=== PATIENT | female | born 1930 | race African-American/Black ===

== ENCOUNTER → 2017-07-15 | Outpatient (CLI) | payer OTHER ==
[2014-04-07 23:10] VITALS: BP 151/79
[2017-07-15 10:38] LABS: EOSINOPHILS # (AUTO) 0.1 x10^3/uL (0.0-0.2); HEMOGLOBIN 11.6 g/dL (12.0-16.0); LYMPHOCYTES # (AUTO) 0.9 X10^3/uL (1.3-2.9); LYMPHOCYTES % (AUTO) 29.5 % (21.0-51.0); MEAN CORPUSCULAR HEMOGLOBIN 31.8 pg (27.0-34.0); MEAN CORPUSCULAR HGB CONC 33.2 g/dL (33.0-35.0); MEAN CORPUSCULAR VOLUME 95.9 fL (80.0-100.0); MEAN PLATELET VOLUME 10.3 fL (7.4-11.0); MONOCYTES # (AUTO) 0.6 x10^3/uL (0.3-0.8); MONOCYTES % (AUTO) 21.3 % (0.0-13.0); NEUTROPHILS # (AUTO) 1.4 x10^3/uL (2.2-4.8); NEUTROPHILS % (AUTO) 45.2 % (42.0-75.0); PLATELET COUNT 124 X10^3/uL (150.0-450.0); RED BLOOD COUNT 3.65 X10^6/uL (3.5-5.4); RED CELL DISTRIBUTION WIDTH 14.1 % (11.6-16.5)
[2017-07-15 10:59] LABS: ALANINE AMINOTRANSFERASE 25 Units/L (12-78); ALBUMIN 3.5 g/dL (3.4-5.0); ALKALINE PHOSPHATASE 120 Units/L (46-116); ASPARTATE AMINO TRANSFERASE 38 Units/L (15-37); BLOOD UREA NITROGEN 14 mg/dL (7-18); CALCIUM 9.3 mg/dL (8.5-10.1); CARBON DIOXIDE 29.6 mmol/L (21-32); CHLORIDE 107 mmol/L (98-107); CREATININE 0.85 mg/dL (0.55-1.02); SODIUM 141 mmol/L (136-145); T4 (THYROXINE) 6.1 ug/dL (4.7-13.3); TOTAL PROTEIN 7.6 g/dL (6.4-8.2); TSH (3RD GENERATION) 0.866 uIU/mL (0.358-3.74); eGFR BLACK RACES > 60 (>60); eGFR NON BLACK RACES > 60 (>60)
[2017-07-15 11:02] LABS: PLATELET MORPHOLOGY COMMENT NORMAL (NORMAL)
== END ==
LOC: LAB 10:06
PROVIDERS: ATTEND Nurse Practitioner Family
DX: D51.0 Vitamin B12 deficiency anemia due to intrinsic factor deficiency (principal); E04.1 Nontoxic single thyroid nodule; R63.0 Anorexia
CPT/HCPCS: 36415; 80053; 84436; 84443; 85025

== ENCOUNTER 2019-03-06 14:07 | Inpatient (IN) ==
--- NOTE | 2019-03-06 14:44 | RAD ---
HISTORY: Shortness of breath Study: Single-view of the chest Comparison: December 24, 2018 Findings: The patient is rotated. The cardiac silhouette is enlarged. The lungs are well expanded without focal infiltrate. There is questionable minimal blunting of the costophrenic angles suggesting pleural thickening and/or is trace effusions. The aorta is partially calcified and tortuous. IMPRESSION: 1. Cardiomegaly. Reported By:
--- NOTE | 2019-03-06 14:49 | DR.GENAD ---
HPI Time Seen Time Seen by Provider: 03/06/19 14:20 PCP Primary Care Physician: MEÑO WHITE HPI Comment HPI Comment: Patient has had dyspnea but son thinks she is having more since surgical procedure to putting clips for mitral valve before really needed. She was discharged from [facility] on yesterday. . Denies any increased shortness of breath. Complaint/Symptoms Chief Complaint Doctors Comments: Dyspnea Chief Complaint:: PT'S DAUGHTER STATES "SHE HAD HEART SURGERY SATURDAY AND SHE HAD SOME KIND OF CLAMP PUT ON HER HEART AND EVERY SINCE THEN SHE HAS BEEN COMPLAINING OF SOB AND DIFFICULTY CATCHING HER BREATH." Self Treatment fo Chief Complaint: NONE Source History Provided: Family Member Mode of Arrival Mode of Arrival: Wheelchair Timing Onset of Chief Complaint: 03/04/19 PMH PMH Past Medical History: Yes Past Medical History: Arthritis, Coronary Artery Disease, GERD and Hypertension Past Surgical History: Yes Surgical History: Hysterectomy, Tonsillectomy and Other (mitral valve clips) Family History History of Family Medical Conditions: Yes Family Medical History: Diabetes Mellitus, Cancer and Hypertension Social History Type of Tobacco Use: None Does any household member use tobacco: No Do you use any recreational Drugs:: No Lives With: Family Lives Where: Home infectious screening In the last 2 months have you had wt loss of >10#?: NO Have you had fever, night sweats or hemotysis?: No Have you traveled outside the country in the last 6 months?: No Isolation: Standard ROS Review of Systems Constitutional: No Symptoms Reported Eyes: No Symptoms Reported ENTM: No Symptoms Reported Respiratoy: No Symptoms Reported Cardiovascular: No Symptoms Reported Gastrointestinal/Abdominal: No Symptoms Reported Genitourinary: No Symptoms Reported Neurological: No Symptoms Reported Musculoskeletal: No Symptoms Reported Integumentary: No Symptoms Reported Hematologic/Lymphatic: No Symptoms Reported Endocrine: No Symptoms Reported All Other Systems: Reviewed and Negative PE Vital Signs Vitals: Temperature 98.7 F Pulse Rate [Apical] 101 Pulse Rate 100 Respiratory Rate 22 Blood Pressure [Right Arm] 106/84 Blood Pressure 102/67 O2 Sat by Pulse Oximetry 99 General Limitations: No Limitations General Appearance: Alert and In No Apparent Distress Head Head Exam: Normal Inspection, Atraumatic and Normocephalic Eyes Eye exam: Normal Appearance, PERRL and EOMI ENT ENT Exam: Normal Exam, Normal Oropharynx and Normal External Ear Exam External Ear Exam: Normal External Inspection TM/Canal Exam: Bilateral: Normal Nose Exam: Crepitus Mouth Exam: Normal Inspection Neck Neck Exam: Normal Inspection and Full ROM Chest Chest Inspection: Normal Inspection, Symmetric Chest Wall Rise and Tenderness Respiratory Respiratory Exam: Normal Lung Sounds Bilat Respiratory Exam: Bilateral: Clear to Auscultation Cardiovascular Cardiovascular Exam: Regular Rate and Normal Rhythm Abdominal Exam Abdominal Exam: Normal Inspection, Normal Bowel Sounds and Soft Extremities Extremities Exam: Normal Inspection, Full ROM and Normal Capillary Refill; negative Edema and Joint Swelling Back Back Exam: Normal Inspection Neurologic Neurological Exam: Alert, Oriented X3 and CN II-XII Intact Psychiatric Psychiatric Exam: Normal Mood Skin Skin Exam: Warm, Dry, Intact and Normal Color COURSE Reevaluation 3rd: Unchanged Consultation Called: 16:51 Consultation Comments: consulted and agreed to admit for further treatment ROR Labs Reviewed Laboratory Results Reviewed?: Yes Result Diagrams: 03/06/19 14:42 03/06/19 14:42 Laboratory: WBC 4.3 X10^3/uL (3.6-10.0) 03/06/19 14:42 RBC 3.26 X10^6/uL (3.5-5.4) L 03/06/19 14:42 Hgb 10.7 g/dL (12.0-16.0) L 03/06/19 14:42 Hct 32.0 % (36.0-47.0) L 03/06/19 14:42 MCV 98.1 fL (80.0-100.0) 03/06/19 14:42 MCH 32.8 pg (27.0-34.0) 03/06/19 14:42 MCHC 33.4 g/dL (33.0-35.0) 03/06/19 14:42 RDW 14.7 % (11.6-16.5) 03/06/19 14:42 Plt Count 136 X10^3/uL (150.0-450.0) L 03/06/19 14:42 MPV 10.3 fL (7.4-11.0) 03/06/19 14:42 Neut % (Auto) 72.6 % (42.0-75.0) 03/06/19 14:42 Lymph % (Auto) 12.4 % (21.0-51.0) L 03/06/19 14:42 [place] % (Auto) 12.9 % (0.0-13.0) 03/06/19 14:42 Eos % (Auto) 1.7 % (0.9-2.9) 03/06/19 14:42 Baso % (Auto) 0.4 % (0.2-1.0) 03/06/19 14:42 Neut # (Auto) 3.1 x10^3/uL (2.2-4.8) 03/06/19 14:42 Lymph # (Auto) 0.5 X10^3/uL (1.3-2.9) L 03/06/19 14:42 Deuel # (Auto) 0.5 x10^3/uL (0.3-0.8) 03/06/19 14:42 Eos # (Auto) 0.1 x10^3/uL (0.0-0.2) 03/06/19 14:42 Baso # (Auto) 0.0 X10^3/uL (0.0-0.1) 03/06/19 14:42 Absolute Nucleated RBC 0.1 /100WBC 03/06/19 14:42 D-Dimer 1190 ng/mL (0-400) H* 03/06/19 14:42 Sodium 138 mmol/L (136-145) 03/06/19 14:42 Corrected Sodium TNP 03/06/19 14:42 Potassium 2.9 mmol/L (3.5-5.1) L* 03/06/19 14:42 Chloride 104 mmol/L (98-107) 03/06/19 14:42 Carbon Dioxide 22.8 mmol/L (21-32) 03/06/19 14:42 BUN 13 mg/dL (7-18) 03/06/19 14:42 Creatinine 1.02 mg/dL (0.55-1.02) 03/06/19 14:42 Est GFR (MDRD) Af Amer > 60 (>60) 03/06/19 14:42 Est GFR (MDRD) Non-Af 54 (>60) L 03/06/19 14:42 Glucose 107 mg/dL (65-99) H 03/06/19 14:42 Calcium 8.7 mg/dL (8.5-10.1) 03/06/19 14:42 Corrected Calcium 9.7 mg/dL (8.5-10.1) 03/06/19 14:42 Total Bilirubin 0.80 mg/dL (0.2-1.0) 03/06/19 14:42 AST 49 Units/L (15-37) H 03/06/19 14:42 ALT 34 Units/L (12-78) 03/06/19 14:42 Alkaline Phosphatase 105 Units/L (46-116) 03/06/19 14:42 Creatine Kinase 260 Units/L (26-192) H 03/06/19 14:42 Total Protein 6.0 g/dL (6.4-8.2) L 03/06/19 14:42 Albumin 2.8 g/dL (3.4-5.0) L 03/06/19 14:42 Globulin 3.2 g/dL (2.5-4.5) 03/06/19 14:42 Albumin/Globulin Ratio 0.9 Ratio (1.1-2.1) L 03/06/19 14:42 Other Results Comments: Chest; The patient is rotated. The cardiac silhoureet is enlarged. The lungs are well expanded without focal infiltrate. There is questionable minimal blunting. of the costophrenic angles suggesting pleural thickening and/or is truce effusions. The aorta is partially calcified and tortous. Impression: Cardimoegaly. CTA: Possible filling defects can be seen within the right lower lobe pulmonary arteries. Severe cardiomegaly. Severe coronary calcification and valvular calcification. Redemonstration of reflux of contrast into the IVC and hepatic veins. No pericardial effusion. No suspicious mediastinal or axillary lymph nodes. There is a small right pleural effusion with adjacent atelectasis and ground glass. Airways are patent. No suspicious pulmonary nodules or masses.Impression: Possible small subsegmental right lower lobe pulmonary embolism. No right pleural effusion and adjacent atelectasis. Superimposed infection cannot be excluded. XRAY XRAY Interpreted by: Radiologist ADDITIONAL NOTES Additional Notes Additional Notes: 1605: D Dimer results, elevated 1500, will do CTA
[2019-03-06 14:55] LABS: BASOPHILS % (AUTO) 0.4 % (0.2-1.0); EOSINOPHILS # (AUTO) 0.1 x10^3/uL (0.0-0.2); EOSINOPHILS % (AUTO) 1.7 % (0.9-2.9); HEMOGLOBIN 10.7 g/dL (12.0-16.0); LYMPHOCYTES # (AUTO) 0.5 X10^3/uL (1.3-2.9); LYMPHOCYTES % (AUTO) 12.4 % (21.0-51.0); MEAN CORPUSCULAR HEMOGLOBIN 32.8 pg (27.0-34.0); MEAN CORPUSCULAR HGB CONC 33.4 g/dL (33.0-35.0); MEAN CORPUSCULAR VOLUME 98.1 fL (80.0-100.0); MEAN PLATELET VOLUME 10.3 fL (7.4-11.0); MONOCYTES # (AUTO) 0.5 x10^3/uL (0.3-0.8); MONOCYTES % (AUTO) 12.9 % (0.0-13.0); NEUTROPHILS # (AUTO) 3.1 x10^3/uL (2.2-4.8); NEUTROPHILS % (AUTO) 72.6 % (42.0-75.0); PLATELET COUNT 136 X10^3/uL (150.0-450.0); RED BLOOD COUNT 3.26 X10^6/uL (3.5-5.4); RED CELL DISTRIBUTION WIDTH 14.7 % (11.6-16.5); WHITE BLOOD COUNT 4.3 X10^3/uL (3.6-10.0)
[2019-03-06 15:46] LABS: ALANINE AMINOTRANSFERASE 34 Units/L (12-78); ALBUMIN 2.8 g/dL (3.4-5.0); ALKALINE PHOSPHATASE 105 Units/L (46-116); ASPARTATE AMINO TRANSFERASE 49 Units/L (15-37); BLOOD UREA NITROGEN 13 mg/dL (7-18); CALCIUM 8.7 mg/dL (8.5-10.1); CARBON DIOXIDE 22.8 mmol/L (21-32); CHLORIDE 104 mmol/L (98-107); COR CA(FOR HYPOALB) 9.7 mg/dL (8.5-10.1); CREATINE KINASE 260 Units/L (26-192); CREATININE 1.02 mg/dL (0.55-1.02); SODIUM 138 mmol/L (136-145); eGFR NON BLACK RACES 54 (>60)
[2019-03-06] MEDS ORDERED: K-LYTE EFFERVESCENT ONE (16:04)
--- NOTE | 2019-03-06 16:51 | CT ---
CT CHEST WITH IV CONTRAST - PE PROTOCOL HISTORY: Shortness of breath since recent heart surgery. Elevated D-dimer. Comparison: 12/24/2018 Technique: Non gated axial images of the chest were obtained with intravenous contrast according to pulmonary embolism protocol. MIPS were reconstructed. Dose reduction techniques including Automated Exposure Control (AEC) and adjustment of mA and kV were utlized. Findings: Possible filling defects can be seen within the right lower lobe pulmonary arteries. For example series 4, image 57 Severe cardiomegaly. Severe coronary calcification and valvular calcification. Redemonstration of reflux of contrast into the IVC and hepatic veins. No pericardial effusion. No suspicious mediastinal or axillary lymph nodes. There is a small right pleural effusion with adjacent atelectasis and ground-glass. Airways are patent. No suspicious pulmonary nodules or masses. Limited images of the upper abdomen are unremarkable. No aggressive osseous lesions. IMPRESSION: 1. Possible small subsegmental right lower lobe pulmonary embolism. 2. New right pleural effusion and adjacent atelectasis. Superimposed infection cannot be excluded. 3. Stable evidence of cardiomegaly and severe right heart dysfunction. Reported By:
[2019-03-06 17:18] LABS: CKMB % 1.1 % (<4); CREATINE KINASE MB 2.9 ng/mL (0-4.0); TROPONIN I 0.04 ng/mL (0-1.5)
[2019-03-06] MEDS ORDERED: ~ZOSYN/LEVAQUIN (Pneumonia) XX ONE (17:24)
[2019-03-06] MEDS ORDERED: NITROSTAT SL PRN (17:39)
[2019-03-06] MEDS ORDERED: SALINE 3% 15 ML NEB TX NEB ONE (18:00)
[2019-03-06] MEDS ORDERED: DUONEB 0.5 MG/3 MG ONE (18:14)
[2019-03-06] MEDS ORDERED: SALINE 3% 15 ML NEB TX ONE (18:14)
[2019-03-06] MEDS: DUONEB 0.5 MG/3 MG NEB SCH ×2 (18:17→21:23)
[2019-03-06] MEDS ORDERED: NS 1/2 1000 ML IV 1,000 ML ONE (18:38)
[2019-03-06] MEDS ORDERED: LEVAQUIN PREMIX IV 750 MG 750 MG/150 ML BAG IV ONE ×2 (18:38→18:39)
[2019-03-06] MEDS: NS 1/2 1000 ML IV 1,000 ML IV SCH (18:39)
[2019-03-06] MEDS ORDERED: LOVENOX INJ 30 MG SYR SC SCH (21:00)
[2019-03-06] MEDS: LOPRESSOR TAB 25 MG PO SCH (21:35)
[2019-03-06] MEDS: COREG TAB 3.125 MG PO SCH (21:35)
[2019-03-06] MEDS: ROBITUSSIN DM PO SCH (21:36)
[2019-03-06] MEDS: BRINZOLAMIDE OP SCH (21:36)
[2019-03-06] MEDS: XALATAN OP SCH (21:36)
[2019-03-07] MEDS: XOPENEX 1.25 MG/3 ML NEBULE NEB SCH ×4 (00:46→17:23)
--- NOTE | 2019-03-07 05:58 | RAD ---
History: Shortness of breath Exam: Portable chest Comparison: 11/05/2006 Technique: Portable AP chest Findings: The heart is mildly enlarged but unchanged. The pulmonary vessels are slightly ill-defined centrally . There are some hazy bibasilar opacities and small bibasilar pleural effusions. IMPRESSION: Mild cardiomegaly and minimal pulmonary edema which is more prominent. Hazy bibasilar opacities and associated small bibasilar pleural effusions. Reported By:
[2019-03-07] MEDS: BRINZOLAMIDE OP SCH ×3 (06:23→20:59)
[2019-03-07 06:35] LABS: BASOPHILS % (AUTO) 0.5 % (0.2-1.0); EOSINOPHILS # (AUTO) 0.1 x10^3/uL (0.0-0.2); EOSINOPHILS % (AUTO) 3.4 % (0.9-2.9); HEMOGLOBIN 9.9 g/dL (12.0-16.0); LYMPHOCYTES # (AUTO) 0.6 X10^3/uL (1.3-2.9); LYMPHOCYTES % (AUTO) 18.7 % (21.0-51.0); MEAN CORPUSCULAR HEMOGLOBIN 33.3 pg (27.0-34.0); MEAN CORPUSCULAR HGB CONC 34.2 g/dL (33.0-35.0); MEAN CORPUSCULAR VOLUME 97.2 fL (80.0-100.0); MEAN PLATELET VOLUME 9.8 fL (7.4-11.0); MONOCYTES # (AUTO) 0.5 x10^3/uL (0.3-0.8); MONOCYTES % (AUTO) 16.2 % (0.0-13.0); NEUTROPHILS % (AUTO) 61.2 % (42.0-75.0); PLATELET COUNT 108 X10^3/uL (150.0-450.0); RED BLOOD COUNT 2.98 X10^6/uL (3.5-5.4); RED CELL DISTRIBUTION WIDTH 14.8 % (11.6-16.5); WHITE BLOOD COUNT 3.3 X10^3/uL (3.6-10.0)
[2019-03-07 06:50] LABS: ALANINE AMINOTRANSFERASE 31 Units/L (12-78); ALBUMIN 2.4 g/dL (3.4-5.0); ALKALINE PHOSPHATASE 94 Units/L (46-116); ASPARTATE AMINO TRANSFERASE 42 Units/L (15-37); BLOOD UREA NITROGEN 10 mg/dL (7-18); CALCIUM 8.3 mg/dL (8.5-10.1); CARBON DIOXIDE 23.9 mmol/L (21-32); CHLORIDE 107 mmol/L (98-107); COR CA(FOR HYPOALB) 9.6 mg/dL (8.5-10.1); CREATININE 0.79 mg/dL (0.55-1.02); SODIUM 140 mmol/L (136-145); TOTAL PROTEIN 5.3 g/dL (6.4-8.2); eGFR NON BLACK RACES > 60 (>60)
[2019-03-07] MEDS: PLAVIX PO SCH (08:32)
[2019-03-07] MEDS: MICRO K EXTEN CAP 10 MEQ PO SCH (08:32)
[2019-03-07] MEDS: PROTONIX TAB 40 MG PO SCH (08:32)
[2019-03-07] MEDS: FOLIC ACID TAB 1 MG PO SCH (08:33)
[2019-03-07] MEDS: COREG TAB 3.125 MG PO SCH ×2 (08:33→20:58)
[2019-03-07] MEDS: LOPRESSOR TAB 25 MG PO SCH ×2 (08:33→20:58)
[2019-03-07] MEDS: LEVAQUIN PREMIX IV 750 MG 750 MG/150 ML BAG IV SCH (08:34)
[2019-03-07] MEDS: VSL#3 PO SCH (08:34)
[2019-03-07] MEDS: ROBITUSSIN DM PO SCH ×4 (08:34→20:58)
[2019-03-07] MEDS ORDERED: NS 1/2 1000 ML IV 1,000 ML ONE ×2 (08:36→20:17)
[2019-03-07] MEDS: NS 1/2 1000 ML IV 1,000 ML IV SCH ×2 (08:36→20:59)
[2019-03-07] MEDS: LOVENOX INJ 30 MG SYR SC SCH ×2 (09:54→20:59)
[2019-03-07] MEDS ORDERED: ZOFRAN INJ 4 MG VIAL ONE (10:27)
[2019-03-07] MEDS: ZOFRAN INJ 4 MG VIAL IVP PRN (10:51)
[2019-03-07] MEDS ORDERED: K-LYTE EFFERVESCENT PO ONE (16:00)
[2019-03-07] MEDS: XALATAN OP SCH (20:59)
[2019-03-08] MEDS: XOPENEX 1.25 MG/3 ML NEBULE NEB SCH ×4 (00:14→17:10)
[2019-03-08] MEDS: BRINZOLAMIDE OP SCH (05:26)
[2019-03-08 06:05] LABS: BASOPHILS % (AUTO) 0.4 % (0.2-1.0); EOSINOPHILS # (AUTO) 0.1 x10^3/uL (0.0-0.2); EOSINOPHILS % (AUTO) 3.2 % (0.9-2.9); HEMATOCRIT 30.7 % (36.0-47.0); HEMOGLOBIN 10.3 g/dL (12.0-16.0); LYMPHOCYTES # (AUTO) 0.6 X10^3/uL (1.3-2.9); MEAN CORPUSCULAR HGB CONC 33.4 g/dL (33.0-35.0); MEAN CORPUSCULAR VOLUME 98.9 fL (80.0-100.0); MEAN PLATELET VOLUME 10.1 fL (7.4-11.0); MONOCYTES # (AUTO) 0.6 x10^3/uL (0.3-0.8); MONOCYTES % (AUTO) 18.2 % (0.0-13.0); NEUTROPHILS # (AUTO) 2.1 x10^3/uL (2.2-4.8); NEUTROPHILS % (AUTO) 60.2 % (42.0-75.0); PLATELET COUNT 131 X10^3/uL (150.0-450.0); RED BLOOD COUNT 3.11 X10^6/uL (3.5-5.4); RED CELL DISTRIBUTION WIDTH 15.1 % (11.6-16.5); WHITE BLOOD COUNT 3.4 X10^3/uL (3.6-10.0)
--- NOTE | 2019-03-08 06:07 | RAD ---
HISTORY: Cough Study: Single view chest Comparison: 03/07/2019 Findings: There are small bilateral pleural effusions with increased interstitial markings likely due to interstitial edema. Stable cardiomegaly. No pneumothorax. IMPRESSION: 1. Bilateral pleural effusions with probable interstitial edema. Reported By:
[2019-03-08 06:26] LABS: ALANINE AMINOTRANSFERASE 29 Units/L (12-78); ALBUMIN 2.4 g/dL (3.4-5.0); ALKALINE PHOSPHATASE 90 Units/L (46-116); ASPARTATE AMINO TRANSFERASE 37 Units/L (15-37); BLOOD UREA NITROGEN 8 mg/dL (7-18); CALCIUM 8.5 mg/dL (8.5-10.1); CARBON DIOXIDE 23.7 mmol/L (21-32); CHLORIDE 106 mmol/L (98-107); COR CA(FOR HYPOALB) 9.8 mg/dL (8.5-10.1); CREATININE 0.85 mg/dL (0.55-1.02); SODIUM 139 mmol/L (136-145); TOTAL PROTEIN 5.5 g/dL (6.4-8.2); eGFR NON BLACK RACES > 60 (>60)
[2019-03-08] MEDS: LEVAQUIN PREMIX IV 750 MG 750 MG/150 ML BAG IV SCH (08:21)
[2019-03-08] MEDS: FOLIC ACID TAB 1 MG PO SCH (08:22)
[2019-03-08] MEDS: COREG TAB 3.125 MG PO SCH ×2 (08:22→21:29)
[2019-03-08] MEDS: LOVENOX INJ 30 MG SYR SC SCH ×2 (08:22→21:30)
[2019-03-08] MEDS: LOPRESSOR TAB 25 MG PO SCH ×2 (08:22→21:29)
[2019-03-08] MEDS: PROTONIX TAB 40 MG PO SCH (08:23)
[2019-03-08] MEDS: PLAVIX PO SCH (08:23)
[2019-03-08] MEDS: MICRO K EXTEN CAP 10 MEQ PO SCH (08:23)
[2019-03-08] MEDS: ROBITUSSIN DM PO SCH ×4 (08:23→21:30)
[2019-03-08] MEDS: VSL#3 PO SCH (08:27)
[2019-03-08] MEDS ORDERED: K-DUR TAB 20 MEQ PO PRN (10:04)
[2019-03-08] MEDS ORDERED: POTASSIUM CHLORIDE LIQ 20 MEQ UDC PO PRN (10:04)
[2019-03-08] MEDS ORDERED: K-RIDER 10 MEQ/NS 100 ML 10 MEQ/100 ML BAG IV PRN (10:04)
[2019-03-08] MEDS ORDERED: MICRO K EXTEN CAP 10 MEQ PO PRN (10:04)
[2019-03-08] MEDS ORDERED: POTASSIUM CHL 40 MEQ/NS 0.45% 500 ML IV PRN (10:04)
[2019-03-08] MEDS ORDERED: POTASSIUM CHL 60 MEQ/NS 0.45% 500 ML IV PRN (10:04)
[2019-03-08] MEDS ORDERED: KLOR-CON PO PRN (10:04)
[2019-03-08 10:52] LABS: CKMB % 1.2 % (<4); CREATINE KINASE MB 1.5 ng/mL (0-4.0); TROPONIN I 0.04 ng/mL (0-1.5)
[2019-03-08] MEDS ORDERED: NS 1/2 1000 ML IV 1,000 ML ONE (13:16)
[2019-03-08] MEDS: NS 1/2 1000 ML IV 1,000 ML IV SCH (13:29)
[2019-03-08] MEDS: MAGNESIUM SULFATE 1 GRAM/100 mL PREMIX 1 GM/100 ML BAG IV PRN ×2 (13:30→15:06)
[2019-03-08] MEDS: XALATAN OP SCH (21:30)
--- NOTE | 2019-03-08 22:03 | DR.H&P ---
H&P - History & Physical for Day of: H&P Date: 03/06/19 - Chief Complaint Chief Complaint: SHORTNESS OF BREATH - History of Present Illness History of Present Illness: IS A 88 YEAR OLD PATIENT OF [facility] WHO PRESENTED TO THE ER WITH COMPLAINTS OF SHORTNESS OF BREATH. SHE WAS RELEASED FROM [facility] YESTERDAY FOR PLACEMENT MITRAL VALVE CLIPS. ON ARRIVAL, VITALS WERE 98.7-100-20-99%-102/67. LABS WERE OBTAINED. ABNORMAL LAB VALUES INCLUDE THE FOLLOWING: RBC 3.26, HGB 10.7, HCT 32.0, PLT COUNT 136, D-DIMER 1190, POTASSIUM 2.9, GLUCOSE 107, AST 49, CREATINE KINASE 260, TOTAL PROTEIN 6.0, ALBUMIN 2.8. SPUTUM AND BLOOD CULTURES OBTAINED. CHEST XRAY REVEALED CARDIOMEGALY. EKG REVEALED: ATRIAL FIBRILLATION WITH HR 85. CHEST CTA REVEALED: Possible small subsegmental right lower lobe pulmonary embolism. New right pleural effusion and adjacent atelectasis. Superimposed infection cannot be excluded. Stable evidence of cardiomegaly and severe right heart dysfunction. SHE WAS ADMITTED FOR FURTHER EVALUATION AND TREATMENT OF PULMONARY EMBOLISM AND RLL PNEUMONIA. SHE WAS STARTED ON LOVENOX 30MG SC BID, IV LEVAQUIN, RESPIRATORY TREATMENTS, SUPPLEMENTAL OXYGEN, AND HOME MEDS WERE RESUMED. OTHERWISE, WE WILL FOLLOW UP WITH AM LABS AND CHEST XRAY AND CONTINUE TO MONITOR. - Past Medical History Past Medical History: Coronary Artery Disease, Hypertension, GERD, Arthritis - Past Surgical History Surgical History: Tonsillectomy, Other - Family History Family Medical History: Cancer - Social History Does patient currently use any type of tobacco product: No Have you used tobacco products in the last 12 months: No Type of Tobacco Use: None Does any household member use tobacco: No Alcohol Use: None Drug Use: None - Medications Home Medications: codeine Allergy (Verified 12/24/18 14:42) Penicillins Allergy (Verified 12/24/18 14:42) CONTINUE taking the following medications clopidogrel 75 mg PO DAILY 03/06/19 [History] furosemide 20 mg PO .THREETIMESAWEEK 03/06/19 [History] hydrocodone-acetaminophen 1 tab PO Q4-6H PRN 03/06/19 [History] metoprolol tartrate 12.5 mg PO BID 03/06/19 [History] montelukast 10 mg PO HS 03/06/19 [History] - Review of Systems Constitutional: Weakness Eyes: No Symptoms Reported ENT: No Symptoms Reported Respiratory: See HPI, Cough, Shortness of Breath Cardiovascular: No Symptoms Reported Gastrointestinal: No Symptoms Reported Genitourinary: No Symptoms Reported Musculoskeletal: No Symptoms Reported Skin: No Symptoms Reported Neurological: Weakness - Physical Exam Vital Signs: Temperature 98.5 F Pulse Rate [Left Brachial] 82 Pulse Rate [Apical] 103 Pulse Rate 74 Respiratory Rate 22 Blood Pressure [Left Arm] 132/78 Blood Pressure [Right Arm] 95/70 Blood Pressure 102/67 O2 Sat by Pulse Oximetry 97 Oriented: Normal Eyes: Normal Ear: Normal Nose: Normal Throat: Normal Respiratory: Diminished Throughout Cardiovascular: Normal : Normal Auscultation: Bowel Sounds: Normal Palpation: Normal Tenderness: Normal Skin: Normal Musculoskeletal: Normal Psychiatric: Normal Mood Description: Calm Affect: Normal Speech Pattern: Clear - Assessment/Plan (1) Pulmonary embolism on right Status: Suspected Plan: LOVENOX 30MG SC BID, CONTINUE TO MONITOR (2) RLL pneumonia Qualifiers: Pneumonia type: due to unspecified organism Qualified Code(s): J18.1 - Lobar pneumonia, unspecified organism Status: Acute Plan: IV LEVAQUIN, RESPIRATORY TX, SUPPLEMENTAL OXYGEN, CONTINUE TO MONITOR - Allergies Allergies/Adverse Reactions: Allergies Allergy/AdvReac Type Severity Reaction Status Date / Time codeine Allergy Verified 12/24/18 14:42 Penicillins Allergy Verified 12/24/18 14:42
[2019-03-09] MEDS: XOPENEX 1.25 MG/3 ML NEBULE NEB SCH ×4 (00:58→17:12)
[2019-03-09] MEDS ORDERED: NS 1/2 1000 ML IV 1,000 ML ONE ×2 (05:54→19:16)
[2019-03-09] MEDS: NS 1/2 1000 ML IV 1,000 ML IV SCH ×3 (06:00→21:38)
[2019-03-09 06:23] LABS: BASOPHILS % (AUTO) 0.8 % (0.2-1.0); EOSINOPHILS # (AUTO) 0.1 x10^3/uL (0.0-0.2); EOSINOPHILS % (AUTO) 3.8 % (0.9-2.9); HEMATOCRIT 30.8 % (36.0-47.0); HEMOGLOBIN 10.4 g/dL (12.0-16.0); LYMPHOCYTES # (AUTO) 0.6 X10^3/uL (1.3-2.9); LYMPHOCYTES % (AUTO) 20.8 % (21.0-51.0); MEAN CORPUSCULAR HEMOGLOBIN 33.2 pg (27.0-34.0); MEAN CORPUSCULAR HGB CONC 33.9 g/dL (33.0-35.0); MEAN CORPUSCULAR VOLUME 97.9 fL (80.0-100.0); MEAN PLATELET VOLUME 9.5 fL (7.4-11.0); MONOCYTES # (AUTO) 0.5 x10^3/uL (0.3-0.8); MONOCYTES % (AUTO) 17.7 % (0.0-13.0); NEUTROPHILS # (AUTO) 1.7 x10^3/uL (2.2-4.8); NEUTROPHILS % (AUTO) 56.9 % (42.0-75.0); PLATELET COUNT 142 X10^3/uL (150.0-450.0); RED BLOOD COUNT 3.15 X10^6/uL (3.5-5.4); RED CELL DISTRIBUTION WIDTH 15.1 % (11.6-16.5)
[2019-03-09 06:56] LABS: ALANINE AMINOTRANSFERASE 27 Units/L (12-78); ALBUMIN 2.3 g/dL (3.4-5.0); ALKALINE PHOSPHATASE 90 Units/L (46-116); ASPARTATE AMINO TRANSFERASE 33 Units/L (15-37); BLOOD UREA NITROGEN 5 mg/dL (7-18); CALCIUM 8.4 mg/dL (8.5-10.1); CARBON DIOXIDE 23.3 mmol/L (21-32); CHLORIDE 107 mmol/L (98-107); COR CA(FOR HYPOALB) 9.8 mg/dL (8.5-10.1); CREATININE 0.87 mg/dL (0.55-1.02); MAGNESIUM 2.3 mg/dL (1.7-2.9); SODIUM 138 mmol/L (136-145); TOTAL PROTEIN 5.5 g/dL (6.4-8.2); eGFR NON BLACK RACES > 60 (>60)
--- NOTE | 2019-03-09 07:18 | RAD ---
HISTORY: Shortness of breath Study: Chest AP portable Comparison: 03/08/2018, 03/07/2018 Findings: The heart remains enlarged. No definite congestive heart failure is noted. No definite acute alveolar infiltrates are identified. Bilateral pleural effusions are unchanged. The bony thorax is unremarkable. IMPRESSION: Continued cardiomegaly but without congestive heart failure on today's examination No change bilateral pleural effusions Reported By:
[2019-03-09] MEDS: LEVAQUIN PREMIX IV 750 MG 750 MG/150 ML BAG IV SCH (08:26)
[2019-03-09] MEDS: FOLIC ACID TAB 1 MG PO SCH (08:26)
[2019-03-09] MEDS: MICRO K EXTEN CAP 10 MEQ PO SCH (08:26)
[2019-03-09] MEDS: COREG TAB 3.125 MG PO SCH ×2 (08:26→21:20)
[2019-03-09] MEDS: LOPRESSOR TAB 25 MG PO SCH ×2 (08:26→21:19)
[2019-03-09] MEDS: PLAVIX PO SCH (08:27)
[2019-03-09] MEDS: VSL#3 PO SCH (08:27)
[2019-03-09] MEDS: LOVENOX INJ 30 MG SYR SC SCH ×2 (08:27→21:20)
[2019-03-09] MEDS: PROTONIX TAB 40 MG PO SCH (08:27)
[2019-03-09] MEDS: ROBITUSSIN DM PO SCH ×4 (08:27→21:19)
--- NOTE | 2019-03-09 11:34 | PCM.PROG ---
Progress Note - Progress Note for Day of Date of Exam: 03/07/19 - Subjective Subjective: WAS ADMITTED FOR PNEUMONIA AND SUSPECTED PULMONARY EMBOLI TO THE RIGHT LOWER LOBE. TODAY, SHE IS ALERT AND ORIENTED, LYING IN BED ON MORNING ROUNDS. SHE CONTINUES WITH COMPLAINTS OF SHORTNESS OF BREATH. ON EXAMINATION, HEART IS REGULAR IN RATE AND RHYTHM. BILATERAL LUNGS ARE NOTED WITH DIMINISHED LUNG SOUNDS THROUGHOUT. ABDOMEN IS ROUND, SOFT, AND NON-TENDER WITH NORMAL BOWEL SOUNDS NOTED IN ALL QUADRNANTS. HER VITLAS THIS MORNING WERE 98.2-88-2-100%NC-103/65. LABS WERE OBTAINED. ABNORMAL LAB VALUES INCLUDE THE FOLLOWING: WBC 3.3, RBC 2.98, HGB 9.9, HCT 29.0, PLT COUNT 108, CALCIUM 8.3, AST 42, TOTAL PROTEIN 5.3, ALBUMIN 2.4. TODAYS CHEST XRAY REVEALED: Mild cardiomegaly and minimal pulmonary edema which is more prominent. Hazy bibasilar opacities and associated small bibasilar pleural effusions. SHE IS CURRENTLY RECEIVING IV LEVAQUIN, RESPIRATORY TX, SUPPLEMENTAL OXYGEN, AND LOVENOX 30MG SC BID. WE WILL CONTINUE WITH CURRENT PLAN OF CARE TODAY. OTHERWISE, WE WILL FOLLOW UP WITH AM LABS AND CONTINUE TO MONITOR. - Past Medical Family Social History Past Med/Fam/Surg Hx: No changes since H&P Allergies: Allergies codeine Allergy (Verified 12/24/18 14:42) Penicillins Allergy (Verified 12/24/18 14:42) - Review of Systems ROS: No change since H&P - Vital Signs and I&O's Vital Signs: Temperature 98.9 F Pulse Rate [Left Brachial] 88 Pulse Rate [Apical] 103 Pulse Rate 74 Respiratory Rate 18 Blood Pressure [Left Arm] 109/74 Blood Pressure [Right Arm] 95/70 Blood Pressure 102/67 O2 Sat by Pulse Oximetry 100 Intake and Output: Intake & Output 03/06/19 03/07/19 03/08/19 03/09/19 11:59 11:59 11:59 11:59 Intake Total 340 / 340 1400 / 1400 4747 / 4747 Balance 340 / 340 1400 / 1400 4747 / 4747 - Physical Exam Oriented: Normal Eyes: Normal Ear: Normal Nose: Normal Throat: Normal Respiratory: Generalized, Diminished Cardiovascular: Normal : Normal Auscultation: Bowel Sounds: Normal Palpation: Normal Tenderness: Normal Skin: Normal Musculoskeletal: Normal Psychiatric: Normal Mood Description: Calm Affect: Normal Speech Pattern: Clear - Laboratory and Diagnostics Result Diagrams: 03/09/19 05:38 03/09/19 05:38 Labs: 03/06/19 18:49 Sputum - Expectorated Sputum Sputum Culture - Final 03/06/19 18:49 Sputum - Expectorated Sputum - Final 03/06/19 17:42 Blood Blood Culture - Preliminary 03/06/19 17:44 Blood Blood Culture - Preliminary Laboratory WBC 3.0 X10^3/uL (3.6-10.0) L 03/09/19 05:38 RBC 3.15 X10^6/uL (3.5-5.4) L 03/09/19 05:38 Hgb 10.4 g/dL (12.0-16.0) L 03/09/19 05:38 Hct 30.8 % (36.0-47.0) L 03/09/19 05:38 MCV 97.9 fL (80.0-100.0) 03/09/19 05:38 MCH 33.2 pg (27.0-34.0) 03/09/19 05:38 MCHC 33.9 g/dL (33.0-35.0) 03/09/19 05:38 RDW 15.1 % (11.6-16.5) 03/09/19 05:38 Plt Count 142 X10^3/uL (150.0-450.0) L 03/09/19 05:38 MPV 9.5 fL (7.4-11.0) 03/09/19 05:38 Neut % (Auto) 56.9 % (42.0-75.0) 03/09/19 05:38 Lymph % (Auto) 20.8 % (21.0-51.0) L 03/09/19 05:38 Maries % (Auto) 17.7 % (0.0-13.0) H 03/09/19 05:38 Eos % (Auto) 3.8 % (0.9-2.9) H 03/09/19 05:38 Baso % (Auto) 0.8 % (0.2-1.0) 03/09/19 05:38 Neut # (Auto) 1.7 x10^3/uL (2.2-4.8) L 03/09/19 05:38 Lymph # (Auto) 0.6 X10^3/uL (1.3-2.9) L 03/09/19 05:38 Maries # (Auto) 0.5 x10^3/uL (0.3-0.8) 03/09/19 05:38 Eos # (Auto) 0.1 x10^3/uL (0.0-0.2) 03/09/19 05:38 Baso # (Auto) 0.0 X10^3/uL (0.0-0.1) 03/09/19 05:38 Absolute Nucleated RBC 0.1 /100WBC 03/09/19 05:38 D-Dimer 1190 ng/mL (0-400) H* 03/06/19 14:42 Sodium 138 mmol/L (136-145) 03/09/19 05:38 Corrected Sodium TNP 03/09/19 05:38 Potassium 4.0 mmol/L (3.5-5.1) 03/09/19 05:38 Chloride 107 mmol/L (98-107) 03/09/19 05:38 Carbon Dioxide 23.3 mmol/L (21-32) 03/09/19 05:38 BUN 5 mg/dL (7-18) L 03/09/19 05:38 Creatinine 0.87 mg/dL (0.55-1.02) 03/09/19 05:38 Est GFR (MDRD) Af Amer > 60 (>60) 03/09/19 05:38 Est GFR (MDRD) Non-Af > 60 (>60) 03/09/19 05:38 Glucose 83 mg/dL (65-99) 03/09/19 05:38 POC Glucose (mg/dL) 88 mg/dL (65-99) 03/09/19 07:07 Calcium 8.4 mg/dL (8.5-10.1) L 03/09/19 05:38 Corrected Calcium 9.8 mg/dL (8.5-10.1) 03/09/19 05:38 Magnesium 2.3 mg/dL (1.7-2.9) 03/09/19 05:38 Total Bilirubin 0.60 mg/dL (0.2-1.0) 03/09/19 05:38 AST 33 Units/L (15-37) 03/09/19 05:38 ALT 27 Units/L (12-78) 03/09/19 05:38 Alkaline Phosphatase 90 Units/L (46-116) 03/09/19 05:38 Creatine Kinase 127 Units/L (26-192) 03/08/19 05:32 CK-MB (CK-2) 1.5 ng/mL (0-4.0) 03/08/19 05:32 CK/CKMB % Calc 1.2 % (<4) 03/08/19 05:32 Troponin I 0.04 ng/mL (0-1.5) 03/08/19 05:32 Total Protein 5.5 g/dL (6.4-8.2) L 03/09/19 05:38 Albumin 2.3 g/dL (3.4-5.0) L 03/09/19 05:38 Globulin 3.2 g/dL (2.5-4.5) 03/09/19 05:38 Albumin/Globulin Ratio 0.7 Ratio (1.1-2.1) L 03/09/19 05:38 - Plan (1) Pulmonary embolism on right Status: Suspected Plan: LOVENOX 30MG SC BID, CONTINUE TO MONITOR (2) RLL pneumonia Status: Acute Qualifiers: Pneumonia type: due to unspecified organism Qualified Code(s): J18.1 - Lobar pneumonia, unspecified organism Plan: IV LEVAQUIN, RESPIRATORY TX, SUPPLEMENTAL OXYGEN, CONTINUE TO MONITOR (3) HTN (hypertension) Status: Chronic Qualifiers: Hypertension type: essential hypertension Qualified Code(s): I10 - Essential (primary) hypertension Plan: CONTINUE HOME MEDS (4) CAD (coronary artery disease) Status: Chronic Qualifiers: Coronary Disease-Associated Artery/Lesion type: [place] artery [place] vs. transplanted heart: [place] heart Associated angina: angina presence unspecifi ed Qualified Code(s): I25.10 - Atherosclerotic heart disease of [place] co ronary artery without angina pectoris Plan: CONTINUE HOME MEDS
--- NOTE | 2019-03-09 11:36 | PCM.PROG ---
Progress Note - Progress Note for Day of Date of Exam: 03/08/19 - Subjective Subjective: WAS ADMITTED FOR PNEUMONIA AND SUSPECTED PULMONARY EMBOLI TO THE RIGHT LOWER LOBE. TODAY, SHE IS ALERT AND ORIENTED, LYING IN BED ON MORNING ROUNDS. SHE CONTINUES WITH COMPLAINTS OF SHORTNESS OF BREATH. ON EXAMINATION, HEART IS REGULAR IN RATE AND RHYTHM. BILATERAL LUNGS ARE NOTED WITH DIMINISHED LUNG SOUNDS THROUGHOUT. ABDOMEN IS ROUND, SOFT, AND NON-TENDER WITH NORMAL BOWEL SOUNDS NOTED IN ALL QUADRNANTS. HER VITLAS THIS MORNING WERE 98.6-82-20-100%-134/72. LABS WERE OBTAINED. ABNORMAL LAB VALUES INCLUDE THE FOLLOWING: WBC 3.4, RBC 3.11, HGB 10.3, HCT 30.7, PLT COUNT 131, TOTAL PROTEIN 5.5, ALBUMIN 2.4. TODAYS CHEST XRAY REVEALED: Bilateral pleural effusions with probable interstitial edema. SHE IS CURRENTLY RECEIVING IV LEVAQUIN, RESPIRATORY TX, SUPPLEMENTAL OXYGEN, AND LOVENOX 30MG SC BID. WE WILL CONTINUE WITH CURRENT PLAN OF CARE TODAY. OTHERWISE, WE WILL FOLLOW UP WITH AM LABS AND CONTINUE TO MONITOR. - Past Medical Family Social History Past Med/Fam/Surg Hx: No changes since H&P Allergies: Allergies codeine Allergy (Verified 12/24/18 14:42) Penicillins Allergy (Verified 12/24/18 14:42) - Review of Systems ROS: No change since H&P - Vital Signs and I&O's Vital Signs: Temperature 98.9 F Pulse Rate [Left Brachial] 88 Pulse Rate [Apical] 103 Pulse Rate 74 Respiratory Rate 18 Blood Pressure [Left Arm] 109/74 Blood Pressure [Right Arm] 95/70 Blood Pressure 102/67 O2 Sat by Pulse Oximetry 100 Intake and Output: Intake & Output 03/06/19 03/07/19 03/08/19 03/09/19 11:59 11:59 11:59 11:59 Intake Total 340 / 340 1400 / 1400 4747 / 4747 Balance 340 / 340 1400 / 1400 4747 / 4747 - Physical Exam Oriented: Normal Eyes: Normal Ear: Normal Nose: Normal Throat: Normal Respiratory: Generalized, Diminished Cardiovascular: Normal : Normal Auscultation: Bowel Sounds: Normal Palpation: Normal Tenderness: Normal Skin: Normal Musculoskeletal: Normal Psychiatric: Normal Mood Description: Calm Affect: Normal Speech Pattern: Clear - Laboratory and Diagnostics Result Diagrams: 03/09/19 05:38 03/09/19 05:38 Labs: 03/06/19 18:49 Sputum - Expectorated Sputum Sputum Culture - Final 03/06/19 18:49 Sputum - Expectorated Sputum - Final 03/06/19 17:42 Blood Blood Culture - Preliminary 03/06/19 17:44 Blood Blood Culture - Preliminary Laboratory WBC 3.0 X10^3/uL (3.6-10.0) L 03/09/19 05:38 RBC 3.15 X10^6/uL (3.5-5.4) L 03/09/19 05:38 Hgb 10.4 g/dL (12.0-16.0) L 03/09/19 05:38 Hct 30.8 % (36.0-47.0) L 03/09/19 05:38 MCV 97.9 fL (80.0-100.0) 03/09/19 05:38 MCH 33.2 pg (27.0-34.0) 03/09/19 05:38 MCHC 33.9 g/dL (33.0-35.0) 03/09/19 05:38 RDW 15.1 % (11.6-16.5) 03/09/19 05:38 Plt Count 142 X10^3/uL (150.0-450.0) L 03/09/19 05:38 MPV 9.5 fL (7.4-11.0) 03/09/19 05:38 Neut % (Auto) 56.9 % (42.0-75.0) 03/09/19 05:38 Lymph % (Auto) 20.8 % (21.0-51.0) L 03/09/19 05:38 [place] % (Auto) 17.7 % (0.0-13.0) H 03/09/19 05:38 Eos % (Auto) 3.8 % (0.9-2.9) H 03/09/19 05:38 Baso % (Auto) 0.8 % (0.2-1.0) 03/09/19 05:38 Neut # (Auto) 1.7 x10^3/uL (2.2-4.8) L 03/09/19 05:38 Lymph # (Auto) 0.6 X10^3/uL (1.3-2.9) L 03/09/19 05:38 [place] # (Auto) 0.5 x10^3/uL (0.3-0.8) 03/09/19 05:38 Eos # (Auto) 0.1 x10^3/uL (0.0-0.2) 03/09/19 05:38 Baso # (Auto) 0.0 X10^3/uL (0.0-0.1) 03/09/19 05:38 Absolute Nucleated RBC 0.1 /100WBC 03/09/19 05:38 D-Dimer 1190 ng/mL (0-400) H* 03/06/19 14:42 Sodium 138 mmol/L (136-145) 03/09/19 05:38 Corrected Sodium TNP 03/09/19 05:38 Potassium 4.0 mmol/L (3.5-5.1) 03/09/19 05:38 Chloride 107 mmol/L (98-107) 03/09/19 05:38 Carbon Dioxide 23.3 mmol/L (21-32) 03/09/19 05:38 BUN 5 mg/dL (7-18) L 03/09/19 05:38 Creatinine 0.87 mg/dL (0.55-1.02) 03/09/19 05:38 Est GFR (MDRD) Af Amer > 60 (>60) 03/09/19 05:38 Est GFR (MDRD) Non-Af > 60 (>60) 03/09/19 05:38 Glucose 83 mg/dL (65-99) 03/09/19 05:38 POC Glucose (mg/dL) 88 mg/dL (65-99) 03/09/19 07:07 Calcium 8.4 mg/dL (8.5-10.1) L 03/09/19 05:38 Corrected Calcium 9.8 mg/dL (8.5-10.1) 03/09/19 05:38 Magnesium 2.3 mg/dL (1.7-2.9) 03/09/19 05:38 Total Bilirubin 0.60 mg/dL (0.2-1.0) 03/09/19 05:38 AST 33 Units/L (15-37) 03/09/19 05:38 ALT 27 Units/L (12-78) 03/09/19 05:38 Alkaline Phosphatase 90 Units/L (46-116) 03/09/19 05:38 Creatine Kinase 127 Units/L (26-192) 03/08/19 05:32 CK-MB (CK-2) 1.5 ng/mL (0-4.0) 03/08/19 05:32 CK/CKMB % Calc 1.2 % (<4) 03/08/19 05:32 Troponin I 0.04 ng/mL (0-1.5) 03/08/19 05:32 Total Protein 5.5 g/dL (6.4-8.2) L 03/09/19 05:38 Albumin 2.3 g/dL (3.4-5.0) L 03/09/19 05:38 Globulin 3.2 g/dL (2.5-4.5) 03/09/19 05:38 Albumin/Globulin Ratio 0.7 Ratio (1.1-2.1) L 03/09/19 05:38 - Plan (1) Pulmonary embolism on right Status: Suspected Plan: LOVENOX 30MG SC BID, CONTINUE TO MONITOR (2) RLL pneumonia Status: Acute Qualifiers: Pneumonia type: due to unspecified organism Qualified Code(s): J18.1 - Lobar pneumonia, unspecified organism Plan: IV LEVAQUIN, RESPIRATORY TX, SUPPLEMENTAL OXYGEN, CONTINUE TO MONITOR (3) HTN (hypertension) Status: Chronic Qualifiers: Hypertension type: essential hypertension Qualified Code(s): I10 - Essential (primary) hypertension Plan: CONTINUE HOME MEDS (4) CAD (coronary artery disease) Status: Chronic Qualifiers: Coronary Disease-Associated Artery/Lesion type: [place] artery [place] vs. transplanted heart: [place] heart Associated angina: angina presence unspecified Qualified Code(s): I25.10 - Atherosclerotic heart disease of [place] coronary artery without angina pectoris Plan: CONTINUE HOME MEDS
[2019-03-09 15:50] VITALS: BMI 16.2
[2019-03-09] MEDS ORDERED: MAALOX or MYLANTA PO PRN (18:14)
[2019-03-09] MEDS: XALATAN OP SCH (21:21)
[2019-03-10] MEDS: XOPENEX 1.25 MG/3 ML NEBULE NEB SCH ×2 (00:52→05:36)
[2019-03-10 05:44] LABS: BASOPHILS % (AUTO) 0.7 % (0.2-1.0); EOSINOPHILS # (AUTO) 0.1 x10^3/uL (0.0-0.2); EOSINOPHILS % (AUTO) 2.5 % (0.9-2.9); HEMATOCRIT 32.7 % (36.0-47.0); HEMOGLOBIN 11.1 g/dL (12.0-16.0); LYMPHOCYTES # (AUTO) 0.6 X10^3/uL (1.3-2.9); LYMPHOCYTES % (AUTO) 19.3 % (21.0-51.0); MEAN CORPUSCULAR HEMOGLOBIN 33.5 pg (27.0-34.0); MEAN CORPUSCULAR VOLUME 98.5 fL (80.0-100.0); MEAN PLATELET VOLUME 9.9 fL (7.4-11.0); MONOCYTES # (AUTO) 0.5 x10^3/uL (0.3-0.8); MONOCYTES % (AUTO) 16.3 % (0.0-13.0); NEUTROPHILS % (AUTO) 61.2 % (42.0-75.0); PLATELET COUNT 159 X10^3/uL (150.0-450.0); RED BLOOD COUNT 3.32 X10^6/uL (3.5-5.4); RED CELL DISTRIBUTION WIDTH 15.5 % (11.6-16.5); WHITE BLOOD COUNT 3.3 X10^3/uL (3.6-10.0)
[2019-03-10] MEDS: NS 1/2 1000 ML IV 1,000 ML IV SCH (05:50)
[2019-03-10 06:06] LABS: ALANINE AMINOTRANSFERASE 27 Units/L (12-78); ALBUMIN 2.5 g/dL (3.4-5.0); ALKALINE PHOSPHATASE 94 Units/L (46-116); ASPARTATE AMINO TRANSFERASE 40 Units/L (15-37); BLOOD UREA NITROGEN 5 mg/dL (7-18); CALCIUM 8.4 mg/dL (8.5-10.1); CARBON DIOXIDE 23.3 mmol/L (21-32); CHLORIDE 106 mmol/L (98-107); COR CA(FOR HYPOALB) 9.6 mg/dL (8.5-10.1); SODIUM 137 mmol/L (136-145); TOTAL PROTEIN 5.6 g/dL (6.4-8.2); eGFR NON BLACK RACES > 60 (>60)
[2019-03-10] MEDS: MICRO K EXTEN CAP 10 MEQ PO SCH (08:31)
[2019-03-10] MEDS: PROTONIX TAB 40 MG PO SCH (08:31)
[2019-03-10] MEDS: PLAVIX PO SCH (08:32)
[2019-03-10] MEDS: VSL#3 PO SCH (08:32)
[2019-03-10] MEDS: COREG TAB 3.125 MG PO SCH (08:32)
[2019-03-10] MEDS: FOLIC ACID TAB 1 MG PO SCH (08:32)
[2019-03-10] MEDS: ROBITUSSIN DM PO SCH (08:33)
[2019-03-10] MEDS: LOVENOX INJ 30 MG SYR SC SCH (08:33)
[2019-03-10] MEDS: LOPRESSOR TAB 25 MG PO SCH (08:33)
[2019-03-10] MEDS: LEVAQUIN PREMIX IV 750 MG 750 MG/150 ML BAG IV SCH (08:33)
[2019-03-10] MEDS: ZOFRAN INJ 4 MG VIAL IVP PRN (08:34)
--- NOTE | 2019-03-10 09:05 | RAD ---
HISTORY: Pneumonia, cough, and shortness of breath. Study: Portable chest. Comparison: Chest x-ray dated March 09, 2019. Findings: The trachea is midline. The cardiac silhouette is stably enlarged. No significant change in lung aeration. Small bilateral pleural effusions are again seen. No obvious pneumothorax. The bony thorax is unremarkable. IMPRESSION: No significant change. Reported By:
[2019-03-10 09:45] VITALS: BP 134/87
[2019-03-10] MEDS ORDERED: MILK OF MAGNESIA PO SCH (21:00)
[2019-04-05] MEDS ORDERED: VITAMIN B-12 INJ IM SCH (09:00)
== END 2019-03-10 11:20 | disposition home or self-care (01) | DRG 175 ==
LOC: MED/SURG 14:07 → ER 14:07 → OBSVTOIN 17:22 → MED/SURG 20:20
PROVIDERS: ADMIT Internal Medicine; ATTEND Internal Medicine
DX: J18.8 Other pneumonia, unspecified organism; R94.31 Abnormal electrocardiogram [ECG] [EKG]; R26.89 Other abnormalities of gait and mobility; I25.10 Atherosclerotic heart disease of native coronary artery without angina pectoris; R79.1 Abnormal coagulation profile; I26.99 Other pulmonary embolism without acute cor pulmonale; R06.02 Shortness of breath
CPT/HCPCS: 36415; 71010; 71045; 71275; 80053; 82550; 82553; 83735; 84484; 85025; 85378; 87040; 87070; 87205; 93005; 94640; 94760; 96365; 96374; 97162; 97166; 99284; A4222; J1650; J1956; J2405; J3475; J7620; J8499

== ENCOUNTER 2019-12-21 14:54 | Inpatient (IN) ==
--- NOTE | 2019-12-21 15:18 | DR.EXTPAIN ---
HPI - Time seen Time seen: 15:10 - PCP Primary Care Physician: LIZZ MILTON - Complaint/Symptoms Chief Complaint:: PT. FELL THIS MORNING INJURING LEFT HIP. PT. HAD AN OUT PATIENT LEFT HIP X-RAY WHICH REVEALED A NONDISPLACED LEFT FEMORAL NECK FRACTURE. - Nurses notes reviewed Nurses Notes Review: Yes - Source History Provided: Patient, Family Member - Mode of arrival Mode of Arrival: Wheelchair - Timing Onset of Chief Complaint: 12/21/19 - Associated signs and symptoms Associated Signs and Symptoms: Pain PMH - PMH Past Medical History: Yes Past Medical History: Coronary Artery Disease, Hypertension, COPD, GERD, Arthritis Past Surgical History: Yes Surgical History: Other, Tonsillectomy - Family History History of Family Medical Conditions: Yes Family Medical History: Cancer - Social History Does patient currently use any type of tobacco product: No Have you used tobacco products in the last 12 months: No Type of Tobacco Use: None Does any household member use tobacco: No Alcohol Use: None Do you use any recreational Drugs:: No Lives With: Family Lives Where: Home - infectious screening In the last 2 months have you had wt loss of >10#?: NO Have you had fever, night sweats or hemotysis?: No Have you traveled outside the country in the last 6 months?: No Isolation: Standard ROS - Review of Systems Constitutional: No Symptoms Reported Eyes: No Symptoms Reported ENTM: No Symptoms Reported Respiratoy: No Symptoms Reported Cardiovascular: No Symptoms Reported Gastrointestinal/Abdominal: No Symptoms Reported Neurological: No Symptoms Reported Musculoskeletal: Left, Hip (pain nondisplaced femoral neck fx) Integumentary: No Symptoms Reported Hematologic/Lymphatic: No Symptoms Reported Endocrine: No Symptoms Reported Psychiatric: No Symptoms Reported All Other Systems: Reviewed and Negative PE - General Limitations: No Limitations General Appearance: Alert, In No Apparent Distress - Head Head Exam: Normal Inspection - Eyes Eye exam: Normal Appearance, EOMI - ENT ENT Exam: Normal Exam, Other (poor dentition) - Neck Neck Exam: Normal Inspection - Chest Chest Inspection: Normal Inspection - Respiratory Respiratory Exam: Normal Lung Sounds Bilat Respiratory Exam: Bilateral Clear to Auscultation - Cardiovascular Cardiovascular Exam: Regular Rate - Abdominal Exam Abdominal Exam: Normal Inspection, Normal Bowel Sounds, Soft - Extremities Extremities Exam: Normal Inspection, Other (left hip pain) - Upper Extremities Shoulder Exam: Normal Inspection Arm Exam: Normal Inspection Elbow Exam: Normal Inspection Forearm Exam: Normal Inspection Hand Exam: Normal Inspection - Lower Extremities Hip/Pelvis Exam: Normal Inspection Upper Leg Exam: Tenderness, Other (left hip pain) Knee Exam: Normal Inspection Lower Leg Exam: Normal Inspection Ankle Exam: Normal Inspection Gait Exam: Not Tested/Not Observed - Back Back Exam: Normal Inspection - Neurological Neurological Exam: Alert, Oriented X3, CN II-XII Intact - Psychiatric Psychiatric Exam: Normal Mood - Skin Skin Exam: Intact, Normal Color - Vital Signs Vitals: Temperature 97.9 F Pulse Rate 65 Respiratory Rate 18 Blood Pressure [Left Arm] 118/83 Blood Pressure 168/84 O2 Sat by Pulse Oximetry 98 Course - Treatment Treatment: 1520: case discussed with DR. Dodd he will call back ROR - Labs Reviewed Result Diagrams: 12/21/19 15:17 12/21/19 15:17 - XRAY XRAY Interpreted by: Radiologist - Labs Reviewed Laboratory: WBC 5.0 X10^3/uL (3.6-10.0) 12/21/19 15:17 RBC 3.71 X10^6/uL (3.5-5.4) 12/21/19 15:17 Hgb 11.9 g/dL (12.0-16.0) L 12/21/19 15:17 Hct 36.0 % (36.0-47.0) 12/21/19 15:17 MCV 97.0 fL (80.0-100.0) 12/21/19 15:17 MCH 32.2 pg (27.0-34.0) 12/21/19 15:17 MCHC 33.1 g/dL (33.0-35.0) 12/21/19 15:17 RDW 16.3 % (11.6-16.5) 12/21/19 15:17 Plt Count 112 X10^3/uL (150.0-450.0) L 12/21/19 15:17 MPV 10.1 fL (7.4-11.0) 12/21/19 15:17 Neut % (Auto) 68.1 % (42.0-75.0) 12/21/19 15:17 Lymph % (Auto) 19.1 % (21.0-51.0) L 12/21/19 15:17 [place] % (Auto) 12.0 % (0.0-13.0) 12/21/19 15:17 Eos % (Auto) 0.4 % (0.9-2.9) L 12/21/19 15:17 Baso % (Auto) 0.4 % (0.2-1.0) 12/21/19 15:17 Neut # (Auto) 3.4 x10^3/uL (2.2-4.8) 12/21/19 15:17 Lymph # (Auto) 1.0 X10^3/uL (1.3-2.9) L 12/21/19 15:17 [place] # (Auto) 0.6 x10^3/uL (0.3-0.8) 12/21/19 15:17 Eos # (Auto) 0.0 x10^3/uL (0.0-0.2) 12/21/19 15:17 Baso # (Auto) 0.0 X10^3/uL (0.0-0.1) 12/21/19 15:17 Absolute Nucleated RBC 0.1 /100WBC 12/21/19 15:17 Sodium 135 mmol/L (136-145) L 12/21/19 15:17 Corrected Sodium 135 mmol/L (136-145) L 12/21/19 15:17 Potassium 4.0 mmol/L (3.5-5.1) 12/21/19 15:17 Chloride 101 mmol/L (98-107) 12/21/19 15:17 Carbon Dioxide 26.0 mmol/L (21-32) 12/21/19 15:17 BUN 13 mg/dL (7-18) 12/21/19 15:17 Creatinine 0.94 mg/dL (0.55-1.02) 12/21/19 15:17 Est GFR (MDRD) Af Amer > 60 (>60) 12/21/19 15:17 Est GFR (MDRD) Non-Af 60 (>60) 12/21/19 15:17 Glucose 111 mg/dL (65-99) H 12/21/19 15:17 Calcium 8.7 mg/dL (8.5-10.1) 12/21/19 15:17 Corrected Calcium TNP 12/21/19 15:17 Total Bilirubin 1.10 mg/dL (0.2-1.0) H 12/21/19 15:17 AST 76 Units/L (15-37) H 12/21/19 15:17 ALT 38 Units/L (12-78) 12/21/19 15:17 Alkaline Phosphatase 111 Units/L (46-116) 12/21/19 15:17 Total Protein 7.6 g/dL (6.4-8.2) 12/21/19 15:17 Albumin 3.5 g/dL (3.4-5.0) 12/21/19 15:17 Globulin 4.1 g/dL (2.5-4.5) 12/21/19 15:17 Albumin/Globulin Ratio 0.9 Ratio (1.1-2.1) L 12/21/19 15:17 - XRAY Xray Findings: left hip : nondisplaced femerol neck fracture CT hIp: Nondisplaced femoral neck fracture (LUMA HERRERA) Opioid - Opioid Risk Tool Age (Luma box if 16-45): No History of Preadolescent Sexual Abuse: No Total: 0 Total Score Risk Category: Low Risk - Diagnosis Discharge Problem: Closed left hip fracture Qualifiers: Encounter type: initial encounter Qualified Code(s): S72.002A - Fracture of unspecified part of neck of left femur, initial encounter for closed fracture - Discharge Plan Condition: Stable - Follow ups/Referrals Follow ups/Referrals: Lizz Milton [Primary Care Provider] - 3 days - Instructions
[2019-12-21] MEDS ORDERED: NS 500 ML IV 500 ML IV ONE ×2 (15:23→15:30)
[2019-12-21] MEDS ORDERED: ZOFRAN INJ 4 MG VIAL IVP ONE (15:26)
[2019-12-21] MEDS ORDERED: DEMEROL INJ IVP ONE ×2 (15:26→17:57)
[2019-12-21] MEDS ORDERED: ZOFRAN INJ 4 MG VIAL ONE (15:30)
[2019-12-21] MEDS ORDERED: DEMEROL INJ ONE ×2 (15:31→17:58)
[2019-12-21 15:37] LABS: BASOPHILS % (AUTO) 0.4 % (0.2-1.0); EOSINOPHILS % (AUTO) 0.4 % (0.9-2.9); HEMOGLOBIN 11.9 g/dL (12.0-16.0); LYMPHOCYTES % (AUTO) 19.1 % (21.0-51.0); MEAN CORPUSCULAR HEMOGLOBIN 32.2 pg (27.0-34.0); MEAN CORPUSCULAR HGB CONC 33.1 g/dL (33.0-35.0); MEAN PLATELET VOLUME 10.1 fL (7.4-11.0); MONOCYTES # (AUTO) 0.6 x10^3/uL (0.3-0.8); NEUTROPHILS # (AUTO) 3.4 x10^3/uL (2.2-4.8); NEUTROPHILS % (AUTO) 68.1 % (42.0-75.0); PLATELET COUNT 112 X10^3/uL (150.0-450.0); RED BLOOD COUNT 3.71 X10^6/uL (3.5-5.4); RED CELL DISTRIBUTION WIDTH 16.3 % (11.6-16.5)
[2019-12-21 15:45] LABS: ALANINE AMINOTRANSFERASE 38 Units/L (12-78); ALBUMIN 3.5 g/dL (3.4-5.0); ALKALINE PHOSPHATASE 111 Units/L (46-116); BLOOD UREA NITROGEN 13 mg/dL (7-18); CALCIUM 8.7 mg/dL (8.5-10.1); CHLORIDE 101 mmol/L (98-107); COR NA(FOR HYPERGLY) 135 mmol/L (136-145); CREATININE 0.94 mg/dL (0.55-1.02); SODIUM 135 mmol/L (136-145); TOTAL PROTEIN 7.6 g/dL (6.4-8.2); eGFR NON BLACK RACES 60 (>60)
[2019-12-21 15:46] LABS: ASPARTATE AMINO TRANSFERASE 76 Units/L (15-37)
--- NOTE | 2019-12-21 16:45 | CT ---
HISTORYLEFT FEMORAL NECK FRACTURESTUDYCT left hip without IV contrastCOMPARISONX-ray from same dayTECHNIQUEAxial CT images of the left hip are obtained without IV contrast. Sagittal and coronal reformations are performed.FINDINGSBones are osteopenic. Left femoral neck fracture is identified. It is not well seen on axial images and is best seen on the coronal reformations. 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 No dislocation. No widening of the symphysis pubis or SI joints. Scoliosis and spondylosis are seen in the lower lumbar spine.Distal abdominal aortic aneurysm measures 2.5 cm in diameter. There is a cystic lesion in the left adnexal region measuring 3.0 cm. This may be an ovarian cyst. Bladder appears normal. Phleboliths are seen in the pelvis. No free pelvic fluid is seen.IMPRESSIONNondisplaced left femoral neck fracture. This may be osteoporotic fracture.3 cm left ovarian cyst. Follow-up ultrasound in 3 months time may be useful to assure stability.Electronically signed by: Pavel Brown (Dec 21, 2019 16:44:17)
[2019-12-21 17:40] LABS: BILIRUBIN,URINE NEGATIVE (NEGATIVE); BLOOD/HEMOGLOBIN,URINE 5+ (NEGATIVE); GLUCOSE, URINE NEGATIVE (NEGATIVE); KETONES,URINE NEGATIVE (NEGATIVE); LEUKOCYTE ESTERASE ,URINE 1+ (NEGATIVE); NITRITES,URINE NEGATIVE (NEGATIVE); PROTEIN,URINE 3+ (NEGATIVE); UROBILINOGEN,URINE NORMAL (NORMAL)
[2019-12-21] MEDS ORDERED: DEMEROL INJ IVP PRN (18:05)
[2019-12-21 18:28] LABS: COLOR,URINE YELLOW (YELLOW)
[2019-12-21 18:29] LABS: APPEARANCE,URINE SLIGHTLY HAZY (CLEAR); BACTERIA,URINE NEGATIVE /HPF (NEGATIVE); SQUAMOUS EPITHELIAL CELL,UR RARE /HPF (NEGATIVE)
[2019-12-21 18:30] LABS: AMORPHOUS SEDIMENT,UR 2+ /HPF (NEGATIVE); HYALINE CASTS, URINE RARE /LPF (NEGATIVE); MUCUS,URINE MODERATE /HPF (NEGATIVE)
[2019-12-21] MEDS ORDERED: MORPHINE SULFATE INJ 2 MG INJ IVP PRN (20:47)
[2019-12-21] MEDS: LOPRESSOR TAB 25 MG PO SCH (21:07)
[2019-12-21] MEDS ORDERED: ULTRAM PO PRN (21:19)
--- NOTE | 2019-12-21 21:24 | RAD ---
CHEST, 1 VIEWHISTORY: PRE OP, HIP SXStudy: AP view of the chest.Comparison:NoneFindings:Severe cardiomegaly. No focal consolidations, pleural effusions or pneumothorax. Osseous structures demonstrate no acute abnormality. Bilateral hyperexpansion and interstitial prominence.IMPRESSION:1. No acute cardiopulmonary process.2. Findings of COPD.Electronically signed by: GLENNA GOMEZ (Dec 21, 2019 21:19:36)
[2019-12-21] MEDS: DEMEROL INJ IVP PRN (21:54)
[2019-12-21 22:41] VITALS: BMI 18.3
[2019-12-22] MEDS: DEMEROL INJ IVP PRN ×2 (01:47→05:34)
[2019-12-22] MEDS ORDERED: NS 500 ML IV 500 ML IV ONE (02:53)
[2019-12-22] MEDS ORDERED: ZOFRAN INJ 4 MG VIAL ONE (04:08)
[2019-12-22] MEDS: ZOFRAN INJ 4 MG VIAL IVP PRN (04:11)
[2019-12-22 05:22] LABS: BASOPHILS % (AUTO) 0.3 % (0.2-1.0); EOSINOPHILS % (AUTO) 0.4 % (0.9-2.9); HEMATOCRIT 34.6 % (36.0-47.0); HEMOGLOBIN 11.5 g/dL (12.0-16.0); LYMPHOCYTES # (AUTO) 0.7 X10^3/uL (1.3-2.9); LYMPHOCYTES % (AUTO) 11.4 % (21.0-51.0); MEAN CORPUSCULAR HEMOGLOBIN 32.4 pg (27.0-34.0); MEAN CORPUSCULAR HGB CONC 33.3 g/dL (33.0-35.0); MEAN CORPUSCULAR VOLUME 97.3 fL (80.0-100.0); MEAN PLATELET VOLUME 11.3 fL (7.4-11.0); MONOCYTES # (AUTO) 0.7 x10^3/uL (0.3-0.8); MONOCYTES % (AUTO) 10.9 % (0.0-13.0); NEUTROPHILS # (AUTO) 4.9 x10^3/uL (2.2-4.8); PLATELET COUNT 132 X10^3/uL (150.0-450.0); RED BLOOD COUNT 3.55 X10^6/uL (3.5-5.4); RED CELL DISTRIBUTION WIDTH 15.7 % (11.6-16.5); WHITE BLOOD COUNT 6.3 X10^3/uL (3.6-10.0)
[2019-12-22 05:42] LABS: ALANINE AMINOTRANSFERASE 58 Units/L (12-78); ALBUMIN 3.3 g/dL (3.4-5.0); ALKALINE PHOSPHATASE 94 Units/L (46-116); ASPARTATE AMINO TRANSFERASE 104 Units/L (15-37); BLOOD UREA NITROGEN 11 mg/dL (7-18); CALCIUM 8.6 mg/dL (8.5-10.1); CARBON DIOXIDE 22.2 mmol/L (21-32); CHLORIDE 98 mmol/L (98-107); COR CA(FOR HYPOALB) 9.2 mg/dL (8.5-10.1); COR NA(FOR HYPERGLY) 132 mmol/L (136-145); SODIUM 131 mmol/L (136-145); TOTAL PROTEIN 7.4 g/dL (6.4-8.2); eGFR NON BLACK RACES > 60 (>60)
[2019-12-22] MEDS: LOPRESSOR TAB 25 MG PO SCH ×2 (08:23→20:41)
[2019-12-22] MEDS: PROTONIX TAB 40 MG PO SCH (08:24)
[2019-12-22] MEDS: CORDARONE TAB 200 MG PO SCH (08:30)
--- NOTE | 2019-12-22 08:47 | DR.H&P ---
H&P History & Physical for Day of: H&P Date: 12/22/19 Chief Complaint Chief Complaint: fall, hip fracture Allergies Allergies Allergy/AdvReac Type Severity Reaction Status Date / Time codeine Allergy Verified 12/21/19 15:06 Penicillins Allergy Verified 12/21/19 15:06 Sulfa (Sulfonamide Allergy Verified 12/21/19 15:06 Antibiotics) [SULFA] History of Present Illness History of Present Illness: Ms. Zaragoza is a 89y/o female with a PMH of atrial fibrillation s/p ablation, MV repair with clips, PE presented with a fall. She reports falling on the porch due to tripping over a ball. She denies being dizzy prior to the fall and did not lose consciousness. She was able to crawl back in the house and contact her son. She was told to go for XR by her PCP. Hip XR showed left femoral neck nondisplaced fracture. She was advised to go to the ED for further management. CT hip was done which confirmed the fracture. Dr. Dodd with Ortho was contacted and agreed to operate today. Patient is currently NPO for procedure this afternoon. She reports pain has been well controlled with Demerol and tramadol prn. Eliquis on hold. Resumed amiodarone and metoprolol. Past Medical History Past Medical History: Arthritis, GERD and Hypertension Additional Medical History: Atrial fibrillation Pulmonary embolus Mitral valve repair Past Surgical History Surgical History: Tonsillectomy and Other Additional Surgical History: Mitral valve repair Ablation Family History Family Medical History: Diabetes Mellitus, Cancer and Hypertension Social History Does patient currently use any type of tobacco product: Yes Have you used tobacco products in the last 12 months: Yes Type of Tobacco Use: Smokeless Does any household member use tobacco: No Alcohol Use: None Drug Use: None Prescription drug monitoring program results: PDMP was not reviewed Medications Home Medications: codeine Allergy (Verified 12/21/19 15:06) Penicillins Allergy (Verified 12/21/19 15:06) Sulfa (Sulfonamide Antibiotics) [SULFA] Allergy (Verified 12/21/19 15:06) CONTINUE taking the following medications amiodarone 200 mg PO DAILY 12/21/19 [History] apixaban [Eliquis] 2.5 mg PO BID 12/21/19 [History] brinzolamide [Azopt] 1 drp OPHTHALMIC (EYE) TID 12/21/19 [History] folic acid 1 mg PO DAILY 12/21/19 [History] hydrocodone-acetaminophen 1 tab PO BID PRN 12/21/19 [History] latanoprost 1 drp OPHTHALMIC (EYE) QHS 12/21/19 [History] metoprolol tartrate 25 mg PO BID 12/21/19 [History] pantoprazole 40 mg PO DAILY 12/21/19 [History] prednisolone acetate 1 drp OPHTHALMIC (EYE) BID 12/21/19 [History] Labs Result Diagrams: 12/22/19 04:34 12/22/19 04:34 Labs: Laboratory WBC 6.3 X10^3/uL (3.6-10.0) 12/22/19 04:34 RBC 3.55 X10^6/uL (3.5-5.4) 12/22/19 04:34 Hgb 11.5 g/dL (12.0-16.0) L 12/22/19 04:34 Hct 34.6 % (36.0-47.0) L 12/22/19 04:34 MCV 97.3 fL (80.0-100.0) 12/22/19 04:34 MCH 32.4 pg (27.0-34.0) 12/22/19 04:34 MCHC 33.3 g/dL (33.0-35.0) 12/22/19 04:34 RDW 15.7 % (11.6-16.5) 12/22/19 04:34 Plt Count 132 X10^3/uL (150.0-450.0) L 12/22/19 04:34 MPV 11.3 fL (7.4-11.0) H 12/22/19 04:34 Neut % (Auto) 77.0 % (42.0-75.0) H 12/22/19 04:34 Lymph % (Auto) 11.4 % (21.0-51.0) L 12/22/19 04:34 [place] % (Auto) 10.9 % (0.0-13.0) 12/22/19 04:34 Eos % (Auto) 0.4 % (0.9-2.9) L 12/22/19 04:34 Baso % (Auto) 0.3 % (0.2-1.0) 12/22/19 04:34 Neut # (Auto) 4.9 x10^3/uL (2.2-4.8) H 12/22/19 04:34 Lymph # (Auto) 0.7 X10^3/uL (1.3-2.9) L 12/22/19 04:34 [place] # (Auto) 0.7 x10^3/uL (0.3-0.8) 12/22/19 04:34 Eos # (Auto) 0.0 x10^3/uL (0.0-0.2) 12/22/19 04:34 Baso # (Auto) 0.0 X10^3/uL (0.0-0.1) 12/22/19 04:34 Absolute Nucleated RBC 0.0 /100WBC 12/22/19 04:34 Sodium 131 mmol/L (136-145) L 12/22/19 04:34 Corrected Sodium 132 mmol/L (136-145) L 12/22/19 04:34 Potassium 3.8 mmol/L (3.5-5.1) 12/22/19 04:34 Chloride 98 mmol/L (98-107) 12/22/19 04:34 Carbon Dioxide 22.2 mmol/L (21-32) 12/22/19 04:34 BUN 11 mg/dL (7-18) 12/22/19 04:34 Creatinine 0.80 mg/dL (0.55-1.02) 12/22/19 04:34 Est GFR (MDRD) Af Amer > 60 (>60) 12/22/19 04:34 Est GFR (MDRD) Non-Af > 60 (>60) 12/22/19 04:34 Glucose 127 mg/dL (65-99) H 12/22/19 04:34 POC Glucose (mg/dL) 126 mg/dL (65-99) H 12/22/19 05:26 Calcium 8.6 mg/dL (8.5-10.1) 12/22/19 04:34 Corrected Calcium 9.2 mg/dL (8.5-10.1) 12/22/19 04:34 Total Bilirubin 1.30 mg/dL (0.2-1.0) H 12/22/19 04:34 AST 104 Units/L (15-37) H 12/22/19 04:34 ALT 58 Units/L (12-78) 12/22/19 04:34 Alkaline Phosphatase 94 Units/L (46-116) 12/22/19 04:34 Total Protein 7.4 g/dL (6.4-8.2) 12/22/19 04:34 Albumin 3.3 g/dL (3.4-5.0) L 12/22/19 04:34 Globulin 4.1 g/dL (2.5-4.5) 12/22/19 04:34 Albumin/Globulin Ratio 0.8 Ratio (1.1-2.1) L 12/22/19 04:34 Specimen Type Catherized urine 12/21/19 17:15 Urine Color Yellow (YELLOW) 12/21/19 17:15 Urine Appearance Slightly hazy (CLEAR) 12/21/19 17:15 Urine pH 8.0 (5.0 - 8.0) 12/21/19 17:15 Ur Specific [place] 1.015 (1.000-1.030) 12/21/19 17:15 Urine Protein 3+ (NEGATIVE) 12/21/19 17:15 Urine Glucose (UA) Negative (NEGATIVE) 12/21/19 17:15 Urine Ketones Negative (NEGATIVE) 12/21/19 17:15 Urine Occult Blood 5+ (NEGATIVE) 12/21/19 17:15 Urine Nitrite Negative (NEGATIVE) 12/21/19 17:15 Urine Bilirubin Negative (NEGATIVE) 12/21/19 17:15 Urine Urobilinogen Normal (NORMAL) 12/21/19 17:15 Ur Leukocyte Esterase 1+ (NEGATIVE) 12/21/19 17:15 Urine RBC 3-5 /HPF (0-3) A 12/21/19 17:15 Urine WBC 0-2 /HPF (0-5) 12/21/19 17:15 Ur Squamous Epith Cells Rare /HPF (NEGATIVE) 12/21/19 17:15 Amorphous Sediment 2+ /HPF (NEGATIVE) 12/21/19 17:15 Urine Bacteria Negative /HPF (NEGATIVE) 12/21/19 17:15 Hyaline Casts Rare /LPF (NEGATIVE) 12/21/19 17:15 Urine Mucus Moderate /HPF (NEGATIVE) 03/02/20 17:15 Ur Culture Indicated? No/not indicated 12/21/19 17:15 Review of Systems Constitutional: No Symptoms Reported Eyes: No Symptoms Reported ENT: No Symptoms Reported Respiratory: No Symptoms Reported Cardiovascular: No Symptoms Reported Gastrointestinal: No Symptoms Reported Genitourinary: No Symptoms Reported Musculoskeletal: Leg Pain Skin: No Symptoms Reported Neurological: No Symptoms Reported Physical Exam Vital Signs: Temperature 99.4 F Pulse Rate [Left Radial] 66 Pulse Rate 69 Respiratory Rate 18 Blood Pressure [Left Arm] 164/87 Blood Pressure 134/60 O2 Sat by Pulse Oximetry 100 Oriented: Normal Eyes: Discharge Ear: Normal Respiratory: Diminished Throughout Cardiovascular: Normal and Edema Auscultation: Bowel Sounds: Normal Palpation: Normal Tenderness: Normal Skin: Normal Musculoskeletal: Left and Hip Psychiatric: Normal Mood Description: Calm Affect: Normal Speech Pattern: Clear and Appropriate Assessment/Plan (1) Closed left hip fracture: Qualifiers: Encounter type: initial encounter Qualified Code(s): S72.002A - Fracture of unspecified part of neck of left femur, initial encounter for closed fracture Status: Acute Plan: As seen on XR an CT, nondisplaced. Dr. Dodd to perform surgery later this afternoon. Continue NPO, holding Eliquis Ppx antibiotic prior to procedure due to hx of MV repair for IE prophylaxis. (2) Pulmonary embolism on right: Status: Suspected Plan: Holding Eliquis due to hip surgery (3) Atrial fibrillation: Qualifiers: Atrial fibrillation type: unspecified chronic Qualified Code(s): I48.20 - Chronic atrial fibrillation, unspecified; I48.2 - Chronic atrial fibrillation Status: Acute Plan: continue metoprolol and amiodarone (4) H/O mitral valve repair: Status: Acute (5) HTN (hypertension): Qualifiers: Hypertension type: essential hypertension Qualified Code(s): I10 - Essential (primary) hypertension Status: Chronic (6) GERD (gastroesophageal reflux disease): Qualifiers: Esophagitis presence: esophagitis presence not specified Qualified Code(s): K21.9 - Gastro-esophageal reflux disease without esophagitis Status: Acute Plan: on pantoprazole Review H&P Reviewed: Yes Patient was examined?: Yes
[2019-12-22] MEDS ORDERED: CLEOCIN 600 MG IV PREMIX 600 MG/50 ML BAG IV ONE (10:00)
[2019-12-22] MEDS ORDERED: CLEOCIN 600 MG IV PREMIX 600 MG/50 ML BAG IV NR (10:30)
[2019-12-22] MEDS ORDERED: FENTANYL INJ 250 mcg ONE (10:48)
[2019-12-22] MEDS ORDERED: LR 1000 ML IV 1,000 ML IV ONE (12:15)
[2019-12-22] MEDS ORDERED: POLYMYXIN B SULFATE ONE (12:15)
[2019-12-22] MEDS ORDERED: ANCEF 1 GRAM IV PREMIX* 1 G/50 ML BAG IV ONE (12:18)
[2019-12-22] MEDS ORDERED: REGLAN INJ 10 MG VIAL IVP PRN (13:44)
[2019-12-22] MEDS ORDERED: PHENERGAN INJ 25 MG IM PRN (13:44)
[2019-12-22] MEDS ORDERED: BENADRYL INJ 50 MG VIAL IVP PRN (13:44)
[2019-12-22] MEDS ORDERED: DILAUDID INJ IVP PRN (13:44)
[2019-12-22] MEDS ORDERED: ZOFRAN INJ 4 MG VIAL IVP PRN (13:44)
[2019-12-22] MEDS ORDERED: NEOSTIGMINE INJ ONE (15:12)
[2019-12-22] MEDS ORDERED: NORCURON INJ 10 MG VIAL ONE (15:12)
[2019-12-22] MEDS ORDERED: DIPRIVAN VIAL ONE (15:12)
[2019-12-22] MEDS ORDERED: QUELICIN (OR ANECTINE) ONE (15:12)
[2019-12-22] MEDS ORDERED: SUPRANE ONE (15:12)
[2019-12-22] MEDS ORDERED: ROBINUL ONE (15:12)
[2019-12-22] MEDS ORDERED: DECADRON INJ ONE (15:12)
[2019-12-22] MEDS: ELIQUIS PO SCH (20:40)
[2019-12-22] MEDS: PRED FORTE 1 % OP SCH (20:41)
[2019-12-22] MEDS: XALATAN OP SCH (20:41)
[2019-12-23] MEDS: DEMEROL INJ IVP PRN ×2 (01:30→07:40)
[2019-12-23] MEDS: ZOFRAN INJ 4 MG VIAL IVP PRN (01:30)
[2019-12-23 05:52] LABS: BASOPHILS % (AUTO) 0.2 % (0.2-1.0); EOSINOPHILS # (AUTO) 0.1 x10^3/uL (0.0-0.2); EOSINOPHILS % (AUTO) 1.3 % (0.9-2.9); HEMOGLOBIN 11.1 g/dL (12.0-16.0); LYMPHOCYTES # (AUTO) 0.6 X10^3/uL (1.3-2.9); LYMPHOCYTES % (AUTO) 9.3 % (21.0-51.0); MEAN CORPUSCULAR HGB CONC 33.8 g/dL (33.0-35.0); MEAN CORPUSCULAR VOLUME 97.7 fL (80.0-100.0); MEAN PLATELET VOLUME 11.3 fL (7.4-11.0); MONOCYTES # (AUTO) 0.9 x10^3/uL (0.3-0.8); MONOCYTES % (AUTO) 13.9 % (0.0-13.0); NEUTROPHILS # (AUTO) 4.7 x10^3/uL (2.2-4.8); NEUTROPHILS % (AUTO) 75.3 % (42.0-75.0); PLATELET COUNT 109 X10^3/uL (150.0-450.0); RED BLOOD COUNT 3.38 X10^6/uL (3.5-5.4); WHITE BLOOD COUNT 6.3 X10^3/uL (3.6-10.0)
[2019-12-23 05:58] LABS: ALANINE AMINOTRANSFERASE 202 Units/L (12-78); ALBUMIN 2.7 g/dL (3.4-5.0); ALKALINE PHOSPHATASE 81 Units/L (46-116); ASPARTATE AMINO TRANSFERASE 359 Units/L (15-37); BLOOD UREA NITROGEN 15 mg/dL (7-18); CALCIUM 8.4 mg/dL (8.5-10.1); CARBON DIOXIDE 25.2 mmol/L (21-32); CHLORIDE 98 mmol/L (98-107); COR CA(FOR HYPOALB) 9.4 mg/dL (8.5-10.1); CREATININE 0.86 mg/dL (0.55-1.02); SODIUM 132 mmol/L (136-145); TOTAL PROTEIN 6.6 g/dL (6.4-8.2); eGFR NON BLACK RACES > 60 (>60)
[2019-12-23] MEDS ORDERED: COLACE CAP 100 MG PO PRN (07:57)
[2019-12-23] MEDS ORDERED: NORCO 10/325 TAB PO PRN (08:02)
--- NOTE | 2019-12-23 08:05 | PCM.PROG ---
Progress Note Progress Note for Day of Date of Exam: 12/23/19 Subjective Subjective: Patient seen at bedside, POD#1 left hip fracture repair, slept overnight with no concerns. Patient's pain has been well controlled. She had just received her pain medicine prior to my exam so appeared to be little drowsy. She was able to answer some questions with a yes or no answer. Family at bedside states she has not eaten much, has been drinking water. Patient states she is not hungry. Labs reviewed, hgb stable, AST/ALT elevated, could be 2/2 to Demerol. Patient is allergic to codeine, sulfa. She takes [place] at home, will DC Demerol and resume home [place], tramadol for breakthrough pain. Continue PT as per Ortho, follow Dr. Dodd's recommendations. Will add Ensure with meals. Con tinue home medications including amiodarone, metoprolol. Eliquis restarted yesterday. Past Medical Family Social History Past Med/Fam/Surg Hx: No changes since H&P Allergies: Allergies codeine Allergy (Verified 12/21/19 15:06) Penicillins Allergy (Verified 12/21/19 15:06) Sulfa (Sulfonamide Antibiotics) [SULFA] Allergy (Verified 12/21/19 15:06) Review of Systems ROS: No change since H&P Vital Signs and I&O's Vital Signs: Temperature 98.1 F Pulse Rate [Left Radial] 66 Pulse Rate 57 Respiratory Rate 18 Blood Pressure [Left Arm] 164/87 Blood Pressure 147/70 O2 Sat by Pulse Oximetry 100 Intake and Output: Intake & Output 12/20/19 12/21/19 12/22/19 12/23/19 23:59 23:59 23:59 23:59 Intake Total 575 / 575 840 / 840 260 / 260 Output Total 900 / 900 950 / 950 100 / 100 Balance -325 / -325 -110 / -110 160 / 160 Physical Exam Oriented: Unable to test Eyes: Discharge Respiratory: Diminished Cardiovascular: Normal Auscultation: Bowel Sounds: Normal Tenderness: Normal Skin: Normal Musculoskeletal: Left and Hip Psychiatric: Normal Mood Description: Calm Affect: Normal Speech Pattern: Clear and Appropriate Laboratory and Diagnostics Result Diagrams: 12/23/19 04:41 12/23/19 04:41 Labs: Laboratory WBC 6.3 X10^3/uL (3.6-10.0) 12/23/19 04:41 RBC 3.38 X10^6/uL (3.5-5.4) L 12/23/19 04:41 Hgb 11.1 g/dL (12.0-16.0) L 12/23/19 04:41 Hct 33.0 % (36.0-47.0) L 12/23/19 04:41 MCV 97.7 fL (80.0-100.0) 12/23/19 04:41 MCH 33.0 pg (27.0-34.0) 12/23/19 04:41 MCHC 33.8 g/dL (33.0-35.0) 12/23/19 04:41 RDW 16.0 % (11.6-16.5) 12/23/19 04:41 Plt Count 109 X10^3/uL (150.0-450.0) L 12/23/19 04:41 MPV 11.3 fL (7.4-11.0) H 12/23/19 04:41 Neut % (Auto) 75.3 % (42.0-75.0) H 12/23/19 04:41 Lymph % (Auto) 9.3 % (21.0-51.0) L 12/23/19 04:41 Day % (Auto) 13.9 % (0.0-13.0) H 12/23/19 04:41 Eos % (Auto) 1.3 % (0.9-2.9) 12/23/19 04:41 Baso % (Auto) 0.2 % (0.2-1.0) 12/23/19 04:41 Neut # (Auto) 4.7 x10^3/uL (2.2-4.8) 12/23/19 04:41 Lymph # (Auto) 0.6 X10^3/uL (1.3-2.9) L 12/23/19 04:41 Day # (Auto) 0.9 x10^3/uL (0.3-0.8) H 12/23/19 04:41 Eos # (Auto) 0.1 x10^3/uL (0.0-0.2) 12/23/19 04:41 Baso # (Auto) 0.0 X10^3/uL (0.0-0.1) 12/23/19 04:41 Absolute Nucleated RBC 0.0 /100WBC 12/23/19 04:41 Sodium 132 mmol/L (136-145) L 12/23/19 04:41 Corrected Sodium TNP 12/23/19 04:41 Potassium 3.8 mmol/L (3.5-5.1) 12/23/19 04:41 Chloride 98 mmol/L (98-107) 12/23/19 04:41 Carbon Dioxide 25.2 mmol/L (21-32) 12/23/19 04:41 BUN 15 mg/dL (7-18) 12/23/19 04:41 Creatinine 0.86 mg/dL (0.55-1.02) 12/23/19 04:41 Est GFR (MDRD) Af Amer > 60 (>60) 12/23/19 04:41 Est GFR (MDRD) Non-Af > 60 (>60) 12/23/19 04:41 Glucose 87 mg/dL (65-99) 12/23/19 04:41 POC Glucose (mg/dL) 86 mg/dL (65-99) 12/23/19 05:19 Calcium 8.4 mg/dL (8.5-10.1) L 12/23/19 04:41 Corrected Calcium 9.4 mg/dL (8.5-10.1) 12/23/19 04:41 Total Bilirubin 1.10 mg/dL (0.2-1.0) H 12/23/19 04:41 AST 359 Units/L (15-37) H 12/23/19 04:41 ALT 202 Units/L (12-78) H 12/23/19 04:41 Alkaline Phosphatase 81 Units/L (46-116) 12/23/19 04:41 Total Protein 6.6 g/dL (6.4-8.2) 12/23/19 04:41 Albumin 2.7 g/dL (3.4-5.0) L 12/23/19 04:41 Globulin 3.9 g/dL (2.5-4.5) 12/23/19 04:41 Albumin/Globulin Ratio 0.7 Ratio (1.1-2.1) L 12/23/19 04:41 Specimen Type Catherized urine 12/21/19 17:15 Urine Color Yellow (YELLOW) 12/21/19 17:15 Urine Appearance Slightly hazy (CLEAR) 12/21/19 17:15 Urine pH 8.0 (5.0 - 8.0) 12/21/19 17:15 Ur Specific [place] 1.015 (1.000-1.030) 12/21/19 17:15 Urine Protein 3+ (NEGATIVE) 12/21/19 17:15 Urine Glucose (UA) Negative (NEGATIVE) 12/21/19 17:15 Urine Ketones Negative (NEGATIVE) 12/21/19 17:15 Urine Occult Blood 5+ (NEGATIVE) 12/21/19 17:15 Urine Nitrite Negative (NEGATIVE) 12/21/19 17:15 Urine Bilirubin Negative (NEGATIVE) 12/21/19 17:15 Urine Urobilinogen Normal (NORMAL) 12/21/19 17:15 Ur Leukocyte Esterase 1+ (NEGATIVE) 12/21/19 17:15 Urine RBC 3-5 /HPF (0-3) A 12/21/19 17:15 Urine WBC 0-2 /HPF (0-5) 12/21/19 17:15 Ur Squamous Epith Cells Rare /HPF (NEGATIVE) 12/21/19 17:15 Amorphous Sediment 2+ /HPF (NEGATIVE) 12/21/19 17:15 Urine Bacteria Negative /HPF (NEGATIVE) 12/21/19 17:15 Hyaline Casts Rare /LPF (NEGATIVE) 12/21/19 17:15 Urine Mucus Moderate /HPF (NEGATIVE) 12/21/19 17:15 Ur Culture Indicated? No/not indicated 12/21/19 17:15 Plan (1) Closed left hip fracture: Status: Acute Qualifiers: Encounter type: initial encounter Qualified Code(s): S72.002A - Fracture of unspecified part of neck of left femur, initial encounter for closed fracture Plan: POD#1 left hip fixation Continue PT, follow ortho recommendations Continue pain control, will DC Demerol and resume [place]. Continue tramadol prn (2) Pulmonary embolism on right: Status: Suspected Plan: Continue Eliquis (3) Atrial fibrillation: Status: Acute Qualifiers: Atrial fibrillation type: unspecified chronic Qualified Code(s): I48.20 - Chronic atrial fibrillation, unspecified; I48.2 - Chronic atrial fibrillation Plan: continue metoprolol and amiodarone (4) H/O mitral valve repair: Status: Acute (5) HTN (hypertension): Status: Chronic Qualifiers: Hypertension type: essential hypertension Qualified Code(s): I10 - Essential (primary) hypertension (6) GERD (gastroesophageal reflux disease): Status: Acute Qualifiers: Esophagitis presence: esophagitis presence not specified Qualified Code(s): K21.9 - Gastro-esophageal reflux disease without esophagitis Plan: on pantoprazole (7) Transaminitis: Status: Acute Plan: LFTs trending up, continue to monitor DC Demerol (8) Thrombocytopenia: Status: Acute Plan: Plt: 109 Monitor AM labs (9) Anemia: Status: Acute Qualifiers: Anemia type: unspecified type Qualified Code(s): D64.9 - Anemia, unspecified Plan: Hgb 11.1, stable
[2019-12-23] MEDS ORDERED: ULTRAM PO PRN (08:08)
[2019-12-23] MEDS: LOPRESSOR TAB 25 MG PO SCH ×2 (08:32→20:59)
[2019-12-23] MEDS: PROTONIX TAB 40 MG PO SCH (08:32)
[2019-12-23] MEDS: CORDARONE TAB 200 MG PO SCH (08:32)
[2019-12-23] MEDS: ELIQUIS PO SCH ×2 (08:32→20:46)
[2019-12-23] MEDS: PRED FORTE 1 % OP SCH ×2 (08:32→20:59)
[2019-12-23] MEDS: NORCO 10/325 TAB PO PRN ×2 (10:31→16:50)
[2019-12-23] MEDS ORDERED: MORPHINE SULFATE INJ 2 MG INJ IVP ONE (11:24)
[2019-12-23] MEDS: TAB-A-VITE PO SCH (13:16)
[2019-12-23] MEDS ORDERED: NS 500 ML IV 500 ML IV ONE (13:37)
[2019-12-23] MEDS: XALATAN OP SCH (20:59)
[2019-12-24] MEDS: NORCO 10/325 TAB PO PRN ×2 (01:00→08:34)
[2019-12-24] MEDS: MORPHINE SULFATE INJ 2 MG INJ IVP PRN ×2 (02:38→11:35)
[2019-12-24] MEDS: ZOFRAN INJ 4 MG VIAL IVP PRN ×3 (02:38→21:08)
[2019-12-24 05:27] LABS: BASOPHILS % (AUTO) 0.1 % (0.2-1.0); EOSINOPHILS # (AUTO) 0.1 x10^3/uL (0.0-0.2); EOSINOPHILS % (AUTO) 2.3 % (0.9-2.9); HEMATOCRIT 31.7 % (36.0-47.0); HEMOGLOBIN 10.9 g/dL (12.0-16.0); LYMPHOCYTES # (AUTO) 0.5 X10^3/uL (1.3-2.9); LYMPHOCYTES % (AUTO) 9.1 % (21.0-51.0); MEAN CORPUSCULAR HEMOGLOBIN 33.2 pg (27.0-34.0); MEAN CORPUSCULAR HGB CONC 34.4 g/dL (33.0-35.0); MEAN CORPUSCULAR VOLUME 96.5 fL (80.0-100.0); MEAN PLATELET VOLUME 11.1 fL (7.4-11.0); MONOCYTES # (AUTO) 0.9 x10^3/uL (0.3-0.8); NEUTROPHILS # (AUTO) 4.1 x10^3/uL (2.2-4.8); NEUTROPHILS % (AUTO) 72.5 % (42.0-75.0); PLATELET COUNT 104 X10^3/uL (150.0-450.0); RED BLOOD COUNT 3.29 X10^6/uL (3.5-5.4); RED CELL DISTRIBUTION WIDTH 15.3 % (11.6-16.5); WHITE BLOOD COUNT 5.6 X10^3/uL (3.6-10.0)
[2019-12-24 05:33] LABS: ALANINE AMINOTRANSFERASE 236 Units/L (12-78); ALBUMIN 2.5 g/dL (3.4-5.0); ALKALINE PHOSPHATASE 102 Units/L (46-116); ASPARTATE AMINO TRANSFERASE 351 Units/L (15-37); BLOOD UREA NITROGEN 16 mg/dL (7-18); CALCIUM 8.3 mg/dL (8.5-10.1); CARBON DIOXIDE 27.2 mmol/L (21-32); CHLORIDE 99 mmol/L (98-107); COR CA(FOR HYPOALB) 9.5 mg/dL (8.5-10.1); CREATININE 0.83 mg/dL (0.55-1.02); SODIUM 133 mmol/L (136-145); TOTAL PROTEIN 6.4 g/dL (6.4-8.2); eGFR NON BLACK RACES > 60 (>60)
[2019-12-24] MEDS ORDERED: POTASSIUM CHL 40 MEQ/NS 0.45% 500 ML IV PRN (05:49)
[2019-12-24] MEDS ORDERED: MICRO K EXTEN CAP 10 MEQ PO PRN (05:49)
[2019-12-24] MEDS ORDERED: POTASSIUM CHLORIDE LIQ 20 MEQ UDC PO PRN (05:49)
[2019-12-24] MEDS ORDERED: POTASSIUM CHL 60 MEQ/NS 0.45% 500 ML IV PRN (05:49)
[2019-12-24] MEDS ORDERED: K-RIDER 10 MEQ/NS 100 ML 10 MEQ/100 ML BAG IV PRN (05:49)
[2019-12-24] MEDS ORDERED: KLOR-CON PO PRN (05:49)
[2019-12-24] MEDS ORDERED: K-DUR TAB 20 MEQ PO PRN (05:49)
[2019-12-24] MEDS: MAGNESIUM SULFATE 1 GRAM/100 mL PREMIX 1 GM/100 ML BAG IV PRN ×2 (06:22→08:30)
--- NOTE | 2019-12-24 08:23 | PCM.PROG ---
Progress Note Progress Note for Day of Date of Exam: 12/24/19 Subjective Subjective: Patient seen at bedside, POD#2 left hip fracture repair, no overnight events. Patient's pain has been controlled with Morphine and Hydrocodone-apap prn. Patient is more awake and alert this morning, answering questions appropriately. She worked with PT yesterday, sat in the chair for almost 3 hrs and did well. She is still not eating as much, she did drink some Ensure. Labs reviewed, hgb slightly low at 10.9, K:3.1, AST trending down, ALT slightly elevated. Replace K as per protocol. Monitor hgb and LFTs. Will check with CM regarding places for rehab. Continue current medications. Add Colace and Milk of mag for constipation. Past Medical Family Social History Past Med/Fam/Surg Hx: No changes since H&P Allergies: Allergies codeine Allergy (Verified 12/21/19 15:06) Penicillins Allergy (Verified 12/21/19 15:06) Sulfa (Sulfonamide Antibiotics) [SULFA] Allergy (Verified 12/21/19 15:06) Review of Systems ROS: No change since H&P Vital Signs and I&O's Vital Signs: Temperature 98.3 F Pulse Rate [Left Radial] 66 Pulse Rate 55 Respiratory Rate 60 Blood Pressure [Left Arm] 164/87 Blood Pressure 154/75 O2 Sat by Pulse Oximetry 100 Intake and Output: Intake & Output 12/21/19 12/22/19 12/23/19 12/24/19 23:59 23:59 23:59 23:59 Intake Total 575 / 575 840 / 840 1300 / 1300 440 / 440 Output Total 900 / 900 950 / 950 650 / 650 100 / 100 Balance -325 / -325 -110 / -110 650 / 650 340 / 340 Physical Exam Oriented: Normal Eyes: Discharge Ear: Normal Respiratory: Diminished Cardiovascular: Normal Auscultation: Bowel Sounds: Normal Tenderness: Normal Skin: Normal Musculoskeletal: Left and Hip Psychiatric: Normal Mood Description: Calm Affect: Normal Speech Pattern: Clear and Appropriate Laboratory and Diagnostics Result Diagrams: 12/24/19 04:43 12/24/19 04:43 Labs: Laboratory WBC 5.6 X10^3/uL (3.6-10.0) 12/24/19 04:43 RBC 3.29 X10^6/uL (3.5-5.4) L 12/24/19 04:43 Hgb 10.9 g/dL (12.0-16.0) L 12/24/19 04:43 Hct 31.7 % (36.0-47.0) L 12/24/19 04:43 MCV 96.5 fL (80.0-100.0) 12/24/19 04:43 MCH 33.2 pg (27.0-34.0) 12/24/19 04:43 MCHC 34.4 g/dL (33.0-35.0) 12/24/19 04:43 RDW 15.3 % (11.6-16.5) 12/24/19 04:43 Plt Count 104 X10^3/uL (150.0-450.0) L 12/24/19 04:43 MPV 11.1 fL (7.4-11.0) H 12/24/19 04:43 Neut % (Auto) 72.5 % (42.0-75.0) 12/24/19 04:43 Lymph % (Auto) 9.1 % (21.0-51.0) L 12/24/19 04:43 [place] % (Auto) 16.0 % (0.0-13.0) H 12/24/19 04:43 Eos % (Auto) 2.3 % (0.9-2.9) 12/24/19 04:43 Baso % (Auto) 0.1 % (0.2-1.0) L 12/24/19 04:43 Neut # (Auto) 4.1 x10^3/uL (2.2-4.8) 12/24/19 04:43 Lymph # (Auto) 0.5 X10^3/uL (1.3-2.9) L 12/24/19 04:43 [place] # (Auto) 0.9 x10^3/uL (0.3-0.8) H 12/24/19 04:43 Eos # (Auto) 0.1 x10^3/uL (0.0-0.2) 12/24/19 04:43 Baso # (Auto) 0.0 X10^3/uL (0.0-0.1) 12/24/19 04:43 Absolute Nucleated RBC 0.1 /100WBC 12/24/19 04:43 Sodium 133 mmol/L (136-145) L 12/24/19 04:43 Corrected Sodium TNP 12/24/19 04:43 Potassium 3.1 mmol/L (3.5-5.1) L 12/24/19 04:43 Chloride 99 mmol/L (98-107) 12/24/19 04:43 Carbon Dioxide 27.2 mmol/L (21-32) 12/24/19 04:43 BUN 16 mg/dL (7-18) 12/24/19 04:43 Creatinine 0.83 mg/dL (0.55-1.02) 12/24/19 04:43 Est GFR (MDRD) Af Amer > 60 (>60) 12/24/19 04:43 Est GFR (MDRD) Non-Af > 60 (>60) 12/24/19 04:43 Glucose 105 mg/dL (65-99) H 12/24/19 04:43 POC Glucose (mg/dL) 106 mg/dL (65-99) H 12/24/19 05:21 Calcium 8.3 mg/dL (8.5-10.1) L 12/24/19 04:43 Corrected Calcium 9.5 mg/dL (8.5-10.1) 12/24/19 04:43 Magnesium 1.8 mg/dL (1.7-2.9) 12/24/19 04:43 Total Bilirubin 1.10 mg/dL (0.2-1.0) H 12/24/19 04:43 AST 351 Units/L (15-37) H 12/24/19 04:43 ALT 236 Units/L (12-78) H 12/24/19 04:43 Alkaline Phosphatase 102 Units/L (46-116) 12/24/19 04:43 Total Protein 6.4 g/dL (6.4-8.2) 12/24/19 04:43 Albumin 2.5 g/dL (3.4-5.0) L 12/24/19 04:43 Globulin 3.9 g/dL (2.5-4.5) 12/24/19 04:43 Albumin/Globulin Ratio 0.6 Ratio (1.1-2.1) L 12/24/19 04:43 Specimen Type Catherized urine 12/21/19 17:15 Urine Color Yellow (YELLOW) 12/21/19 17:15 Urine Appearance Slightly hazy (CLEAR) 12/21/19 17:15 Urine pH 8.0 (5.0 - 8.0) 12/21/19 17:15 Ur Specific [place] 1.015 (1.000-1.030) 12/21/19 17:15 Urine Protein 3+ (NEGATIVE) 12/21/19 17:15 Urine Glucose (UA) Negative (NEGATIVE) 12/21/19 17:15 Urine Ketones Negative (NEGATIVE) 12/21/19 17:15 Urine Occult Blood 5+ (NEGATIVE) 12/21/19 17:15 Urine Nitrite Negative (NEGATIVE) 12/21/19 17:15 Urine Bilirubin Negative (NEGATIVE) 12/21/19 17:15 Urine Urobilinogen Normal (NORMAL) 12/21/19 17:15 Ur Leukocyte Esterase 1+ (NEGATIVE) 12/21/19 17:15 Urine RBC 3-5 /HPF (0-3) A 12/21/19 17:15 Urine WBC 0-2 /HPF (0-5) 12/21/19 17:15 Ur Squamous Epith Cells Rare /HPF (NEGATIVE) 12/21/19 17:15 Amorphous Sediment 2+ /HPF (NEGATIVE) 12/21/19 17:15 Urine Bacteria Negative /HPF (NEGATIVE) 12/21/19 17:15 Hyaline Casts Rare /LPF (NEGATIVE) 12/21/19 17:15 Urine Mucus Moderate /HPF (NEGATIVE) 12/21/19 17:15 Ur Culture Indicated? No/not indicated 12/21/19 17:15 Plan (1) Closed left hip fracture: Status: Acute Qualifiers: Encounter type: initial encounter Qualified Code(s): S72.002A - Fracture of unspecified part of neck of left femur, initial encounter for closed fracture Plan: POD#2 left hip fixation Continue PT, follow ortho recommendations Continue pain control (2) Pulmonary embolism on right: Status: Suspected Plan: Continue Eliquis (3) Atrial fibrillation: Status: Acute Qualifiers: Atrial fibrillation type: unspecified chronic Qualified Code(s): I48.20 - Chronic atrial fibrillation, unspecified; I48.2 - Chronic atrial fibrillation Plan: continue metoprolol and amiodarone (4) H/O mitral valve repair: Status: Acute (5) HTN (hypertension): Status: Chronic Qualifiers: Hypertension type: essential hypertension Qualified Code(s): I10 - Essential (primary) hypertension (6) GERD (gastroesophageal reflux disease): Status: Acute Qualifiers: Esophagitis presence: esophagitis presence not specified Qualified Code(s): K21.9 - Gastro-esophageal reflux disease without esophagitis Plan: on pantoprazole (7) Transaminitis: Status: Acute Plan: AST trending down, ALT slightly up. Continue to monitor labs. (8) Thrombocytopenia: Status: Acute Plan: Plt: 104 Monitor AM labs (9) Anemia: Status: Acute Qualifiers: Anemia type: unspecified type Qualified Code(s): D64.9 - Anemia, unspecified Plan: Hgb 10.9, continue to monitor (10) Hypokalemia: Status: Acute (11) Constipation: Status: Acute Qualifiers: Constipation type: unspecified constipation type Qualified Code(s): K59.00 - Constipation, unspecified (12) Protein calorie malnutrition: Status: Acute Qualifiers: Protein-calorie malnutrition severity: severe Qualified Code(s): E43 - Unspecified severe protein-calorie malnutrition
[2019-12-24] MEDS: PROTONIX TAB 40 MG PO SCH (08:29)
[2019-12-24] MEDS: TAB-A-VITE PO SCH (08:29)
[2019-12-24] MEDS: ELIQUIS PO SCH ×2 (08:29→20:34)
[2019-12-24] MEDS: LOPRESSOR TAB 25 MG PO SCH ×2 (08:29→20:35)
[2019-12-24] MEDS: CORDARONE TAB 200 MG PO SCH (08:30)
[2019-12-24] MEDS: PRED FORTE 1 % OP SCH ×2 (08:45→20:35)
[2019-12-24] MEDS: MILK OF MAGNESIA PO PRN ×3 (08:51→21:05)
[2019-12-24] MEDS: XALATAN OP SCH (20:35)
[2019-12-25 05:21] LABS: BASOPHILS % (AUTO) 0.3 % (0.2-1.0); EOSINOPHILS # (AUTO) 0.2 x10^3/uL (0.0-0.2); EOSINOPHILS % (AUTO) 2.2 % (0.9-2.9); HEMATOCRIT 32.8 % (36.0-47.0); HEMOGLOBIN 11.1 g/dL (12.0-16.0); LYMPHOCYTES # (AUTO) 0.6 X10^3/uL (1.3-2.9); LYMPHOCYTES % (AUTO) 7.7 % (21.0-51.0); MEAN CORPUSCULAR HEMOGLOBIN 32.6 pg (27.0-34.0); MEAN CORPUSCULAR VOLUME 95.9 fL (80.0-100.0); MONOCYTES % (AUTO) 14.2 % (0.0-13.0); NEUTROPHILS # (AUTO) 5.6 x10^3/uL (2.2-4.8); NEUTROPHILS % (AUTO) 75.6 % (42.0-75.0); PLATELET COUNT 123 X10^3/uL (150.0-450.0); RED BLOOD COUNT 3.42 X10^6/uL (3.5-5.4); RED CELL DISTRIBUTION WIDTH 15.7 % (11.6-16.5); WHITE BLOOD COUNT 7.4 X10^3/uL (3.6-10.0)
[2019-12-25 05:45] LABS: ALANINE AMINOTRANSFERASE 322 Units/L (12-78); ALBUMIN 2.8 g/dL (3.4-5.0); ALKALINE PHOSPHATASE 110 Units/L (46-116); ASPARTATE AMINO TRANSFERASE 462 Units/L (15-37); BLOOD UREA NITROGEN 14 mg/dL (7-18); CALCIUM 8.5 mg/dL (8.5-10.1); CARBON DIOXIDE 26.5 mmol/L (21-32); CHLORIDE 97 mmol/L (98-107); COR CA(FOR HYPOALB) 9.5 mg/dL (8.5-10.1); CREATININE 0.74 mg/dL (0.55-1.02); MAGNESIUM 2.3 mg/dL (1.7-2.9); SODIUM 132 mmol/L (136-145); TOTAL PROTEIN 6.7 g/dL (6.4-8.2); eGFR NON BLACK RACES > 60 (>60)
[2019-12-25] MEDS: NORCO 5/325 MG TAB PO PRN ×2 (06:30→23:01)
[2019-12-25] MEDS: CORDARONE TAB 200 MG PO SCH (08:55)
[2019-12-25] MEDS: PROTONIX TAB 40 MG PO SCH (08:56)
[2019-12-25] MEDS: TAB-A-VITE PO SCH (08:56)
[2019-12-25] MEDS: ELIQUIS PO SCH ×2 (08:56→20:25)
[2019-12-25] MEDS: LOPRESSOR TAB 25 MG PO SCH ×2 (08:56→20:25)
[2019-12-25] MEDS: PRED FORTE 1 % OP SCH ×2 (13:00→20:27)
[2019-12-25] MEDS: XALATAN OP SCH (20:28)
[2019-12-26] MEDS: NORCO 5/325 MG TAB PO PRN (04:07)
[2019-12-26 06:24] LABS: BASOPHILS % (AUTO) 0.5 % (0.2-1.0); EOSINOPHILS # (AUTO) 0.2 x10^3/uL (0.0-0.2); EOSINOPHILS % (AUTO) 2.9 % (0.9-2.9); HEMATOCRIT 31.8 % (36.0-47.0); HEMOGLOBIN 10.9 g/dL (12.0-16.0); LYMPHOCYTES # (AUTO) 0.5 X10^3/uL (1.3-2.9); LYMPHOCYTES % (AUTO) 10.4 % (21.0-51.0); MEAN CORPUSCULAR HEMOGLOBIN 33.3 pg (27.0-34.0); MEAN CORPUSCULAR HGB CONC 34.5 g/dL (33.0-35.0); MEAN CORPUSCULAR VOLUME 96.6 fL (80.0-100.0); MEAN PLATELET VOLUME 11.4 fL (7.4-11.0); MONOCYTES # (AUTO) 0.8 x10^3/uL (0.3-0.8); MONOCYTES % (AUTO) 15.8 % (0.0-13.0); NEUTROPHILS # (AUTO) 3.6 x10^3/uL (2.2-4.8); NEUTROPHILS % (AUTO) 70.4 % (42.0-75.0); PLATELET COUNT 120 X10^3/uL (150.0-450.0); RED BLOOD COUNT 3.29 X10^6/uL (3.5-5.4); RED CELL DISTRIBUTION WIDTH 15.9 % (11.6-16.5); WHITE BLOOD COUNT 5.2 X10^3/uL (3.6-10.0)
[2019-12-26 06:33] LABS: ALANINE AMINOTRANSFERASE 372 Units/L (12-78); ALBUMIN 2.7 g/dL (3.4-5.0); ALKALINE PHOSPHATASE 108 Units/L (46-116); ASPARTATE AMINO TRANSFERASE 448 Units/L (15-37); BLOOD UREA NITROGEN 16 mg/dL (7-18); CALCIUM 8.8 mg/dL (8.5-10.1); CARBON DIOXIDE 27.2 mmol/L (21-32); CHLORIDE 99 mmol/L (98-107); COR CA(FOR HYPOALB) 9.8 mg/dL (8.5-10.1); SODIUM 134 mmol/L (136-145); TOTAL PROTEIN 6.4 g/dL (6.4-8.2); eGFR NON BLACK RACES > 60 (>60)
[2019-12-26] MEDS: CORDARONE TAB 200 MG PO SCH (11:23)
[2019-12-26] MEDS: ELIQUIS PO SCH ×2 (11:25→20:54)
[2019-12-26] MEDS: PRED FORTE 1 % OP SCH ×2 (11:26→20:55)
[2019-12-26] MEDS: LOPRESSOR TAB 25 MG PO SCH ×2 (11:26→20:54)
[2019-12-26] MEDS: PROTONIX TAB 40 MG PO SCH (11:27)
[2019-12-26] MEDS: TAB-A-VITE PO SCH (11:39)
--- NOTE | 2019-12-26 11:54 | PCM.PROG ---
Progress Note Progress Note for Day of Date of Exam: 12/26/19 Subjective Subjective: Patient seen at bedside, POD#3 left hip fracture repair, no overnight events. Patient is awaiting transfer to rehab for PT/OT. She continues to not eat as much, she had some ensure. She is asking for [employer], family member at bedside states she likes [employer] and will get her something for lunch. She states her pain is stable. She did sit in the recliner yesterday. Continue current treatment, awaiting placement to rehab. Past Medical Family Social History Past Med/Fam/Surg Hx: No changes since H&P Allergies: Allergies codeine Allergy (Verified 12/21/19 15:06) Penicillins Allergy (Verified 12/21/19 15:06) Sulfa (Sulfonamide Antibiotics) [SULFA] Allergy (Verified 12/21/19 15:06) Review of Systems ROS: No change since H&P Vital Signs and I&O's Vital Signs: Temperature 97.9 F Pulse Rate [Left Radial] 66 Pulse Rate 68 Respiratory Rate 18 Blood Pressure [Left Arm] 164/87 Blood Pressure 149/71 O2 Sat by Pulse Oximetry 98 Intake and Output: Intake & Output 12/23/19 12/24/19 12/25/19 12/26/19 23:59 23:59 23:59 23:59 Intake Total 1300 / 1300 1550 / 1550 390 / 390 60 / 60 Output Total 650 / 650 1050 / 1050 1060 / 1060 Balance 650 / 650 500 / 500 -670 / -670 60 / 60 Physical Exam Oriented: Normal Eyes: Discharge Ear: Normal Respiratory: Diminished Cardiovascular: Normal Auscultation: Bowel Sounds: Normal Tenderness: Normal Skin: Normal Musculoskeletal: Left and Hip Psychiatric: Normal Mood Description: Calm Affect: Normal Speech Pattern: Clear and Appropriate Laboratory and Diagnostics Result Diagrams: 12/26/19 04:33 12/26/19 04:33 Labs: Laboratory WBC 5.2 X10^3/uL (3.6-10.0) 12/26/19 04:33 RBC 3.29 X10^6/uL (3.5-5.4) L 12/26/19 04:33 Hgb 10.9 g/dL (12.0-16.0) L 12/26/19 04:33 Hct 31.8 % (36.0-47.0) L 12/26/19 04:33 MCV 96.6 fL (80.0-100.0) 12/26/19 04:33 MCH 33.3 pg (27.0-34.0) 12/26/19 04:33 MCHC 34.5 g/dL (33.0-35.0) 12/26/19 04:33 RDW 15.9 % (11.6-16.5) 12/26/19 04:33 Plt Count 120 X10^3/uL (150.0-450.0) L 12/26/19 04:33 MPV 11.4 fL (7.4-11.0) H 12/26/19 04:33 Neut % (Auto) 70.4 % (42.0-75.0) 12/26/19 04:33 Lymph % (Auto) 10.4 % (21.0-51.0) L 12/26/19 04:33 [place] % (Auto) 15.8 % (0.0-13.0) H 12/26/19 04:33 Eos % (Auto) 2.9 % (0.9-2.9) 12/26/19 04:33 Baso % (Auto) 0.5 % (0.2-1.0) 12/26/19 04:33 Neut # (Auto) 3.6 x10^3/uL (2.2-4.8) 12/26/19 04:33 Lymph # (Auto) 0.5 X10^3/uL (1.3-2.9) L 12/26/19 04:33 [place] # (Auto) 0.8 x10^3/uL (0.3-0.8) 12/26/19 04:33 Eos # (Auto) 0.2 x10^3/uL (0.0-0.2) 12/26/19 04:33 Baso # (Auto) 0.0 X10^3/uL (0.0-0.1) 12/26/19 04:33 Absolute Nucleated RBC 0.0 /100WBC 12/26/19 04:33 Sodium 134 mmol/L (136-145) L 12/26/19 04:33 Corrected Sodium TNP 12/26/19 04:33 Potassium 3.4 mmol/L (3.5-5.1) L 12/26/19 04:33 Chloride 99 mmol/L (98-107) 12/26/19 04:33 Carbon Dioxide 27.2 mmol/L (21-32) 12/26/19 04:33 BUN 16 mg/dL (7-18) 12/26/19 04:33 Creatinine 0.90 mg/dL (0.55-1.02) 12/26/19 04:33 Est GFR (MDRD) Af Amer > 60 (>60) 12/26/19 04:33 Est GFR (MDRD) Non-Af > 60 (>60) 12/26/19 04:33 Glucose 81 mg/dL (65-99) 12/26/19 04:33 POC Glucose (mg/dL) 76 mg/dL (65-99) 12/26/19 04:32 Calcium 8.8 mg/dL (8.5-10.1) 12/26/19 04:33 Corrected Calcium 9.8 mg/dL (8.5-10.1) 12/26/19 04:33 Magnesium 2.2 mg/dL (1.7-2.9) 12/26/19 04:33 Total Bilirubin 1.50 mg/dL (0.2-1.0) H 12/26/19 04:33 AST 448 Units/L (15-37) H 12/26/19 04:33 ALT 372 Units/L (12-78) H 12/26/19 04:33 Alkaline Phosphatase 108 Units/L (46-116) 12/26/19 04:33 Total Protein 6.4 g/dL (6.4-8.2) 12/26/19 04:33 Albumin 2.7 g/dL (3.4-5.0) L 12/26/19 04:33 Globulin 3.7 g/dL (2.5-4.5) 12/26/19 04:33 Albumin/Globulin Ratio 0.7 Ratio (1.1-2.1) L 12/26/19 04:33 Specimen Type Catherized urine 12/21/19 17:15 Urine Color Yellow (YELLOW) 12/21/19 17:15 Urine Appearance Slightly hazy (CLEAR) 12/21/19 17:15 Urine pH 8.0 (5.0 - 8.0) 12/21/19 17:15 Ur Specific [place] 1.015 (1.000-1.030) 12/21/19 17:15 Urine Protein 3+ (NEGATIVE) 12/21/19 17:15 Urine Glucose (UA) Negative (NEGATIVE) 12/21/19 17:15 Urine Ketones Negative (NEGATIVE) 12/21/19 17:15 Urine Occult Blood 5+ (NEGATIVE) 12/21/19 17:15 Urine Nitrite Negative (NEGATIVE) 12/21/19 17:15 Urine Bilirubin Negative (NEGATIVE) 12/21/19 17:15 Urine Urobilinogen Normal (NORMAL) 12/21/19 17:15 Ur Leukocyte Esterase 1+ (NEGATIVE) 12/21/19 17:15 Urine RBC 3-5 /HPF (0-3) A 12/21/19 17:15 Urine WBC 0-2 /HPF (0-5) 12/21/19 17:15 Ur Squamous Epith Cells Rare /HPF (NEGATIVE) 12/21/19 17:15 Amorphous Sediment 2+ /HPF (NEGATIVE) 12/21/19 17:15 Urine Bacteria Negative /HPF (NEGATIVE) 12/21/19 17:15 Hyaline Casts Rare /LPF (NEGATIVE) 12/21/19 17:15 Urine Mucus Moderate /HPF (NEGATIVE) 12/21/19 17:15 Ur Culture Indicated? No/not indicated 12/21/19 17:15 Plan (1) Closed left hip fracture: Status: Acute Qualifiers: Encounter type: initial encounter Qualified Code(s): S72.002A - Fracture of unspecified part of neck of left femur, initial encounter for closed fracture Plan: POD#3 left hip fixation Continue pain control Awaiting placement (2) Pulmonary embolism on right: Status: Suspected Plan: Continue Eliquis (3) Atrial fibrillation: Status: Acute Qualifiers: Atrial fibrillation type: unspecified chronic Qualified Code(s): I48.20 - Chronic atrial fibrillation, unspecified; I48.2 - Chronic atrial fibrillation Plan: continue metoprolol and amiodarone (4) H/O mitral valve repair: Status: Acute (5) HTN (hypertension): Status: Chronic Qualifiers: Hypertension type: essential hypertension Qualified Code(s): I10 - Essential (primary) hypertension (6) GERD (gastroesophageal reflux disease): Status: Acute Qualifiers: Esophagitis presence: esophagitis presence not specified Qualified Code(s): K21.9 - Gastro-esophageal reflux disease without esophagitis Plan: on pantoprazole (7) Transaminitis: Status: Acute Plan: Still trending up slightly, patient with poor oral intake. Tbili trending down. (8) Thrombocytopenia: Status: Acute Plan: Plt: 120 Monitor AM labs (9) Anemia: Status: Acute Qualifiers: Anemia type: unspecified type Qualified Code(s): D64.9 - Anemia, unspecified Plan: Hgb 10.9, continue to monitor (10) Hypokalemia: Status: Acute Plan: replace as per protocol (11) Constipation: Status: Acute Qualifiers: Constipation type: unspecified constipation type Qualified Code(s): K59.00 - Constipation, unspecified (12) Protein calorie malnutrition: Status: Acute Qualifiers: Protein-calorie malnutrition severity: severe Qualified Code(s): E43 - Unspecified severe protein-calorie malnutrition
[2019-12-26] MEDS: XALATAN OP SCH (20:55)
[2019-12-27 06:17] LABS: BLOOD UREA NITROGEN 15 mg/dL (7-18); CALCIUM 8.8 mg/dL (8.5-10.1); CARBON DIOXIDE 26.7 mmol/L (21-32); CHLORIDE 101 mmol/L (98-107); CREATININE 0.79 mg/dL (0.55-1.02); SODIUM 135 mmol/L (136-145); eGFR NON BLACK RACES > 60 (>60)
[2019-12-27 06:53] LABS: BASOPHILS % (AUTO) 0.2 % (0.2-1.0); EOSINOPHILS # (AUTO) 0.2 x10^3/uL (0.0-0.2); EOSINOPHILS % (AUTO) 4.4 % (0.9-2.9); HEMATOCRIT 33.2 % (36.0-47.0); HEMOGLOBIN 11.2 g/dL (12.0-16.0); LYMPHOCYTES # (AUTO) 0.9 X10^3/uL (1.3-2.9); LYMPHOCYTES % (AUTO) 16.9 % (21.0-51.0); MEAN CORPUSCULAR HEMOGLOBIN 32.6 pg (27.0-34.0); MEAN CORPUSCULAR HGB CONC 33.7 g/dL (33.0-35.0); MEAN CORPUSCULAR VOLUME 96.8 fL (80.0-100.0); MEAN PLATELET VOLUME 11.2 fL (7.4-11.0); MONOCYTES # (AUTO) 0.9 x10^3/uL (0.3-0.8); MONOCYTES % (AUTO) 18.5 % (0.0-13.0); PLATELET COUNT 144 X10^3/uL (150.0-450.0); RED BLOOD COUNT 3.43 X10^6/uL (3.5-5.4); RED CELL DISTRIBUTION WIDTH 15.9 % (11.6-16.5); WHITE BLOOD COUNT 5.1 X10^3/uL (3.6-10.0)
[2019-12-27] MEDS: CORDARONE TAB 200 MG PO SCH (09:57)
[2019-12-27] MEDS: LOPRESSOR TAB 25 MG PO SCH ×2 (09:58→21:03)
[2019-12-27] MEDS: ELIQUIS PO SCH ×2 (09:58→21:02)
[2019-12-27] MEDS: PRED FORTE 1 % OP SCH ×2 (09:59→21:00)
[2019-12-27] MEDS: TAB-A-VITE PO SCH (09:59)
[2019-12-27] MEDS: PROTONIX TAB 40 MG PO SCH (09:59)
[2019-12-27] MEDS: NORCO 5/325 MG TAB PO PRN ×3 (10:00→23:30)
--- NOTE | 2019-12-27 12:32 | PCM.PROG ---
Progress Note Progress Note for Day of Date of Exam: 12/27/19 Subjective Subjective: Patient seen at bedside, POD#4 left hip fracture repair, no overnight events. She states she had more pain yesterday. Patient is on [place] prn and she only received it one time yesterday, advised the patient that she can ask for another dose if she needs it. She is currently sitting in a rec liner. Continue current treatment, awaiting placement to rehab. Past Medical Family Social History Past Med/Fam/Surg Hx: No changes since H&P Allergies: Allergies codeine Allergy (Verified 12/21/19 15:06) Penicillins Allergy (Verified 12/21/19 15:06) Sulfa (Sulfonamide Antibiotics) [SULFA] Allergy (Verified 12/21/19 15:06) Review of Systems ROS: No change since H&P Vital Signs and I&O's Vital Signs: Temperature 98.3 F Pulse Rate [Left Radial] 66 Pulse Rate 62 Respiratory Rate 18 Blood Pressure [Left Arm] 164/87 Blood Pressure 169/79 O2 Sat by Pulse Oximetry 99 Intake and Output: Intake & Output 12/24/19 12/25/19 12/26/19 12/28/19 23:59 23:59 23:59 00:59 Intake Total 1550 / 1550 390 / 390 410 / 410 0 / 0 Output Total 1050 / 1050 1060 / 1060 Balance 500 / 500 -670 / -670 410 / 410 0 / 0 Physical Exam Oriented: Normal Eyes: Discharge Ear: Normal Respiratory: Diminished Cardiovascular: Normal Auscultation: Bowel Sounds: Normal Tenderness: Normal Skin: Normal Musculoskeletal: Left and Hip Psychiatric: Normal Mood Description: Calm Affect: Normal Speech Pattern: Clear and Appropriate Laboratory and Diagnostics Result Diagrams: 12/27/19 04:57 12/27/19 04:57 Labs: Laboratory WBC 5.1 X10^3/uL (3.6-10.0) 12/27/19 04:57 RBC 3.43 X10^6/uL (3.5-5.4) L 12/27/19 04:57 Hgb 11.2 g/dL (12.0-16.0) L 12/27/19 04:57 Hct 33.2 % (36.0-47.0) L 12/27/19 04:57 MCV 96.8 fL (80.0-100.0) 12/27/19 04:57 MCH 32.6 pg (27.0-34.0) 12/27/19 04:57 MCHC 33.7 g/dL (33.0-35.0) 12/27/19 04:57 RDW 15.9 % (11.6-16.5) 12/27/19 04:57 Plt Count 144 X10^3/uL (150.0-450.0) L 12/27/19 04:57 MPV 11.2 fL (7.4-11.0) H 12/27/19 04:57 Neut % (Auto) 60.0 % (42.0-75.0) 12/27/19 04:57 Lymph % (Auto) 16.9 % (21.0-51.0) L 12/27/19 04:57 [place] % (Auto) 18.5 % (0.0-13.0) H 12/27/19 04:57 Eos % (Auto) 4.4 % (0.9-2.9) H 12/27/19 04:57 Baso % (Auto) 0.2 % (0.2-1.0) 12/27/19 04:57 Neut # (Auto) 3.0 x10^3/uL (2.2-4.8) 12/27/19 04:57 Lymph # (Auto) 0.9 X10^3/uL (1.3-2.9) L 12/27/19 04:57 [place] # (Auto) 0.9 x10^3/uL (0.3-0.8) H 12/27/19 04:57 Eos # (Auto) 0.2 x10^3/uL (0.0-0.2) 12/27/19 04:57 Baso # (Auto) 0.0 X10^3/uL (0.0-0.1) 12/27/19 04:57 Absolute Nucleated RBC 0.1 /100WBC 12/27/19 04:57 Sodium 135 mmol/L (136-145) L 12/27/19 04:57 Corrected Sodium TNP 12/27/19 04:57 Potassium 3.6 mmol/L (3.5-5.1) 12/27/19 04:57 Chloride 101 mmol/L (98-107) 12/27/19 04:57 Carbon Dioxide 26.7 mmol/L (21-32) 12/27/19 04:57 BUN 15 mg/dL (7-18) 12/27/19 04:57 Creatinine 0.79 mg/dL (0.55-1.02) 12/27/19 04:57 Est GFR (MDRD) Af Amer > 60 (>60) 12/27/19 04:57 Est GFR (MDRD) Non-Af > 60 (>60) 12/27/19 04:57 Glucose 88 mg/dL (65-99) 12/27/19 04:57 POC Glucose (mg/dL) 79 mg/dL (65-99) 12/27/19 11:47 Calcium 8.8 mg/dL (8.5-10.1) 12/27/19 04:57 Corrected Calcium 9.8 mg/dL (8.5-10.1) 12/26/19 04:33 Magnesium 2.2 mg/dL (1.7-2.9) 12/26/19 04:33 Total Bilirubin 1.50 mg/dL (0.2-1.0) H 12/26/19 04:33 AST 448 Units/L (15-37) H 12/26/19 04:33 ALT 372 Units/L (12-78) H 12/26/19 04:33 Alkaline Phosphatase 108 Units/L (46-116) 12/26/19 04:33 Total Protein 6.4 g/dL (6.4-8.2) 12/26/19 04:33 Albumin 2.7 g/dL (3.4-5.0) L 12/26/19 04:33 Globulin 3.7 g/dL (2.5-4.5) 12/26/19 04:33 Albumin/Globulin Ratio 0.7 Ratio (1.1-2.1) L 12/26/19 04:33 Specimen Type Catherized urine 12/21/19 17:15 Urine Color Yellow (YELLOW) 12/21/19 17:15 Urine Appearance Slightly hazy (CLEAR) 12/21/19 17:15 Urine pH 8.0 (5.0 - 8.0) 12/21/19 17:15 Ur Specific [place] 1.015 (1.000-1.030) 12/21/19 17:15 Urine Protein 3+ (NEGATIVE) 12/21/19 17:15 Urine Glucose (UA) Negative (NEGATIVE) 12/21/19 17:15 Urine Ketones Negative (NEGATIVE) 12/21/19 17:15 Urine Occult Blood 5+ (NEGATIVE) 12/21/19 17:15 Urine Nitrite Negative (NEGATIVE) 12/21/19 17:15 Urine Bilirubin Negative (NEGATIVE) 12/21/19 17:15 Urine Urobilinogen Normal (NORMAL) 12/21/19 17:15 Ur Leukocyte Esterase 1+ (NEGATIVE) 12/21/19 17:15 Urine RBC 3-5 /HPF (0-3) A 12/21/19 17:15 Urine WBC 0-2 /HPF (0-5) 12/21/19 17:15 Ur Squamous Epith Cells Rare /HPF (NEGATIVE) 12/21/19 17:15 Amorphous Sediment 2+ /HPF (NEGATIVE) 12/21/19 17:15 Urine Bacteria Negative /HPF (NEGATIVE) 12/21/19 17:15 Hyaline Casts Rare /LPF (NEGATIVE) 12/21/19 17:15 Urine Mucus Moderate /HPF (NEGATIVE) 12/21/19 17:15 Ur Culture Indicated? No/not indicated 12/21/19 17:15 Plan (1) Closed left hip fracture: Status: Acute Qualifiers: Encounter type: initial encounter Qualified Code(s): S72.002A - Fracture of unspecified part of neck of left femur, initial encounter for closed fracture Plan: POD#4 left hip fixation Continue pain control Awaiting placement (2) Pulmonary embolism on right: Status: Suspected Plan: Continue Eliquis (3) Atrial fibrillation: Status: Acute Qualifiers: Atrial fibrillation type: unspecified chronic Qualified Code(s): I48.20 - Chronic atrial fibrillation, unspecified; I48.2 - Chronic atrial fibrillation Plan: continue metoprolol and amiodarone (4) H/O mitral valve repair: Status: Acute (5) HTN (hypertension): Status: Chronic Qualifiers: Hypertension type: essential hypertension Qualified Code(s): I10 - Essential (primary) hypertension (6) GERD (gastroesophageal reflux disease): Status: Acute Qualifiers: Esophagitis presence: esophagitis presence not specified Qualified Code(s): K21.9 - Gastro-esophageal reflux disease without esophagitis Plan: on pantoprazole (7) Transaminitis: Status: Acute Plan: Still trending up slightly, patient with poor oral intake. Tbili trending down. (8) Thrombocytopenia: Status: Acute Plan: Plt: 144 (9) Anemia: Status: Acute Qualifiers: Anemia type: unspecified type Qualified Code(s): D64.9 - Anemia, unspecified Plan: stable (10) Hypokalemia: Status: Acute Plan: replace as per protocol (11) Constipation: Status: Acute Qualifiers: Constipation type: unspecified constipation type Qualified Code(s): K59.00 - Constipation, unspecified (12) Protein calorie malnutrition: Status: Acute Qualifiers: Protein-calorie malnutrition severity: severe Qualified Code(s): E43 - Unspecified severe protein-calorie malnutrition
[2019-12-27] MEDS: XALATAN OP SCH (21:03)
[2019-12-28] MEDS ORDERED: NORCO 5/325 MG TAB PO PRN (08:29)
[2019-12-28] MEDS: PROTONIX TAB 40 MG PO SCH (10:09)
[2019-12-28] MEDS: TAB-A-VITE PO SCH (10:09)
[2019-12-28] MEDS: LOPRESSOR TAB 25 MG PO SCH ×2 (10:09→20:31)
[2019-12-28] MEDS: ELIQUIS PO SCH ×2 (10:10→20:32)
[2019-12-28] MEDS: CORDARONE TAB 200 MG PO SCH (10:10)
[2019-12-28] MEDS: PRED FORTE 1 % OP SCH ×2 (10:11→20:32)
--- NOTE | 2019-12-28 17:05 | PCM.PROG ---
Progress Note Progress Note for Day of Date of Exam: 12/28/19 Subjective Subjective: Patient seen at bedside, POD#5 left hip fracture repair, no overnight events. Family at bedside reports patient did not sleep well due to sundowning. Patient took the pain medicine and was not able to sleep till head concierge. Will decrease [place] to TID prn instead of QID. Continue current treatment, awaiting placement to rehab. Past Medical Family Social History Past Med/Fam/Surg Hx: No changes since H&P Allergies: Allergies codeine Allergy (Verified 12/21/19 15:06) Penicillins Allergy (Verified 12/21/19 15:06) Sulfa (Sulfonamide Antibiotics) [SULFA] Allergy (Verified 12/21/19 15:06) Review of Systems ROS: No change since H&P Vital Signs and I&O's Vital Signs: Temperature 99.1 F Pulse Rate [Left Radial] 66 Pulse Rate 52 Respiratory Rate 16 Blood Pressure [Left Arm] 164/87 Blood Pressure 127/62 O2 Sat by Pulse Oximetry 97 Intake and Output: Intake & Output 12/25/19 12/26/19 12/27/19 12/28/19 22:59 22:59 23:59 23:59 Intake Total 360 / 360 Output Total Balance 360 / 360 Physical Exam Oriented: Normal Ear: Normal Respiratory: Diminished Cardiovascular: Normal Auscultation: Bowel Sounds: Normal Tenderness: Normal Skin: Normal Musculoskeletal: Left and Hip Psychiatric: Normal Mood Description: Calm Affect: Normal Speech Pattern: Clear and Appropriate Laboratory and Diagnostics Result Diagrams: 12/27/19 04:57 12/27/19 04:57 Labs: Laboratory WBC 5.1 X10^3/uL (3.6-10.0) 12/27/19 04:57 RBC 3.43 X10^6/uL (3.5-5.4) L 12/27/19 04:57 Hgb 11.2 g/dL (12.0-16.0) L 12/27/19 04:57 Hct 33.2 % (36.0-47.0) L 12/27/19 04:57 MCV 96.8 fL (80.0-100.0) 12/27/19 04:57 MCH 32.6 pg (27.0-34.0) 12/27/19 04:57 MCHC 33.7 g/dL (33.0-35.0) 12/27/19 04:57 RDW 15.9 % (11.6-16.5) 12/27/19 04:57 Plt Count 144 X10^3/uL (150.0-450.0) L 12/27/19 04:57 MPV 11.2 fL (7.4-11.0) H 12/27/19 04:57 Neut % (Auto) 60.0 % (42.0-75.0) 12/27/19 04:57 Lymph % (Auto) 16.9 % (21.0-51.0) L 12/27/19 04:57 [place] % (Auto) 18.5 % (0.0-13.0) H 12/27/19 04:57 Eos % (Auto) 4.4 % (0.9-2.9) H 12/27/19 04:57 Baso % (Auto) 0.2 % (0.2-1.0) 12/27/19 04:57 Neut # (Auto) 3.0 x10^3/uL (2.2-4.8) 12/27/19 04:57 Lymph # (Auto) 0.9 X10^3/uL (1.3-2.9) L 12/27/19 04:57 [place] # (Auto) 0.9 x10^3/uL (0.3-0.8) H 12/27/19 04:57 Eos # (Auto) 0.2 x10^3/uL (0.0-0.2) 12/27/19 04:57 Baso # (Auto) 0.0 X10^3/uL (0.0-0.1) 12/27/19 04:57 Absolute Nucleated RBC 0.1 /100WBC 12/27/19 04:57 Sodium 135 mmol/L (136-145) L 12/27/19 04:57 Corrected Sodium TNP 12/27/19 04:57 Potassium 3.6 mmol/L (3.5-5.1) 12/27/19 04:57 Chloride 101 mmol/L (98-107) 12/27/19 04:57 Carbon Dioxide 26.7 mmol/L (21-32) 12/27/19 04:57 BUN 15 mg/dL (7-18) 12/27/19 04:57 Creatinine 0.79 mg/dL (0.55-1.02) 12/27/19 04:57 Est GFR (MDRD) Af Amer > 60 (>60) 12/27/19 04:57 Est GFR (MDRD) Non-Af > 60 (>60) 12/27/19 04:57 Glucose 88 mg/dL (65-99) 12/27/19 04:57 POC Glucose (mg/dL) 77 mg/dL (65-99) 12/28/19 11:47 Calcium 8.8 mg/dL (8.5-10.1) 12/27/19 04:57 Corrected Calcium 9.8 mg/dL (8.5-10.1) 12/26/19 04:33 Magnesium 2.2 mg/dL (1.7-2.9) 12/26/19 04:33 Total Bilirubin 1.50 mg/dL (0.2-1.0) H 12/26/19 04:33 AST 448 Units/L (15-37) H 12/26/19 04:33 ALT 372 Units/L (12-78) H 12/26/19 04:33 Alkaline Phosphatase 108 Units/L (46-116) 12/26/19 04:33 Total Protein 6.4 g/dL (6.4-8.2) 12/26/19 04:33 Albumin 2.7 g/dL (3.4-5.0) L 12/26/19 04:33 Globulin 3.7 g/dL (2.5-4.5) 12/26/19 04:33 Albumin/Globulin Ratio 0.7 Ratio (1.1-2.1) L 12/26/19 04:33 Specimen Type Catherized urine 12/21/19 17:15 Urine Color Yellow (YELLOW) 12/21/19 17:15 Urine Appearance Slightly hazy (CLEAR) 12/21/19 17:15 Urine pH 8.0 (5.0 - 8.0) 12/21/19 17:15 Ur Specific [place] 1.015 (1.000-1.030) 12/21/19 17:15 Urine Protein 3+ (NEGATIVE) 12/21/19 17:15 Urine Glucose (UA) Negative (NEGATIVE) 12/21/19 17:15 Urine Ketones Negative (NEGATIVE) 12/21/19 17:15 Urine Occult Blood 5+ (NEGATIVE) 12/21/19 17:15 Urine Nitrite Negative (NEGATIVE) 12/21/19 17:15 Urine Bilirubin Negative (NEGATIVE) 12/21/19 17:15 Urine Urobilinogen Normal (NORMAL) 12/21/19 17:15 Ur Leukocyte Esterase 1+ (NEGATIVE) 12/21/19 17:15 Urine RBC 3-5 /HPF (0-3) A 12/21/19 17:15 Urine WBC 0-2 /HPF (0-5) 12/21/19 17:15 Ur Squamous Epith Cells Rare /HPF (NEGATIVE) 12/21/19 17:15 Amorphous Sediment 2+ /HPF (NEGATIVE) 12/21/19 17:15 Urine Bacteria Negative /HPF (NEGATIVE) 12/21/19 17:15 Hyaline Casts Rare /LPF (NEGATIVE) 12/21/19 17:15 Urine Mucus Moderate /HPF (NEGATIVE) 12/21/19 17:15 Ur Culture Indicated? No/not indicated 12/21/19 17:15 Plan (1) Closed left hip fracture: Status: Acute Qualifiers: Encounter type: initial encounter Qualified Code(s): S72.002A - Fracture of unspecified part of neck of left femur, initial encounter for closed fracture Plan: POD#5 left hip fixation Continue pain control Awaiting placement (2) Pulmonary embolism on right: Status: Suspected Plan: Continue Eliquis (3) Atrial fibrillation: Status: Acute Qualifiers: Atrial fibrillation type: unspecified chronic Qualified Code(s): I48.20 - Chronic atrial fibrillation, unspecified; I48.2 - Chronic atrial fibrillation Plan: continue metoprolol and amiodarone (4) H/O mitral valve repair: Status: Acute (5) HTN (hypertension): Status: Chronic Qualifiers: Hypertension type: essential hypertension Qualified Code(s): I10 - Essential (primary) hypertension (6) GERD (gastroesophageal reflux disease): Status: Acute Qualifiers: Esophagitis presence: esophagitis presence not specified Qualified Code(s): K21.9 - Gastro-esophageal reflux disease without esophagitis Plan: on pantoprazole (7) Transaminitis: Status: Acute Plan: Still trending up slightly, patient with poor oral intake. Tbili trending down. (8) Thrombocytopenia: Status: Acute Plan: Plt: 144 (9) Anemia: Status: Acute Qualifiers: Anemia type: unspecified type Qualified Code(s): D64.9 - Anemia, unspecified Plan: stable (10) Hypokalemia: Status: Acute Plan: replace as per protocol (11) Constipation: Status: Acute Qualifiers: Constipation type: unspecified constipation type Qualified Code(s): K59.00 - Constipation, unspecified (12) Protein calorie malnutrition: Status: Acute Qualifiers: Protein-calorie malnutrition severity: severe Qualified Code(s): E43 - Unspecified severe protein-calorie malnutrition
[2019-12-28] MEDS: XALATAN OP SCH (20:32)
[2019-12-29 03:57] LABS: BILIRUBIN,URINE NEGATIVE (NEGATIVE); BLOOD/HEMOGLOBIN,URINE 2+ (NEGATIVE); GLUCOSE, URINE NEGATIVE (NEGATIVE); KETONES,URINE NEGATIVE (NEGATIVE); LEUKOCYTE ESTERASE ,URINE 2+ (NEGATIVE); NITRITES,URINE POSITIVE (NEGATIVE); PROTEIN,URINE 1+ (NEGATIVE); UROBILINOGEN,URINE 2+ (NORMAL)
[2019-12-29 04:05] LABS: APPEARANCE,URINE CLOUDY (CLEAR); BACTERIA,URINE 4+ /HPF (NEGATIVE); COLOR,URINE YELLOW (YELLOW); SQUAMOUS EPITHELIAL CELL,UR RARE /HPF (NEGATIVE)
[2019-12-29] MEDS: TAB-A-VITE PO SCH (08:18)
[2019-12-29] MEDS: LOPRESSOR TAB 25 MG PO SCH ×2 (08:18→08:32)
[2019-12-29] MEDS: PROTONIX TAB 40 MG PO SCH (08:18)
[2019-12-29] MEDS: ELIQUIS PO SCH (08:22)
[2019-12-29] MEDS: CORDARONE TAB 200 MG PO SCH (08:32)
[2019-12-29] MEDS ORDERED: KEFLEX CAP 500 MG PO SCH (09:00)
[2019-12-29 10:59] LABS: BILIRUBIN,URINE NEGATIVE (NEGATIVE); BLOOD/HEMOGLOBIN,URINE 2+ (NEGATIVE); GLUCOSE, URINE NEGATIVE (NEGATIVE); KETONES,URINE NEGATIVE (NEGATIVE); LEUKOCYTE ESTERASE ,URINE 1+ (NEGATIVE); NITRITES,URINE POSITIVE (NEGATIVE); PROTEIN,URINE 1+ (NEGATIVE); UROBILINOGEN,URINE 2+ (NORMAL)
[2019-12-29 11:14] LABS: APPEARANCE,URINE HAZY (CLEAR); COLOR,URINE YELLOW (YELLOW)
[2019-12-29 11:15] LABS: RBC,URINE 0-2 /HPF (0-3)
[2019-12-29 11:16] LABS: BACTERIA,URINE 4+ /HPF (NEGATIVE); SQUAMOUS EPITHELIAL CELL,UR NEGATIVE /HPF (NEGATIVE)
[2019-12-29] MEDS: PRED FORTE 1 % OP SCH (11:42)
[2019-12-29 12:06] VITALS: BP 123/60
--- NOTE | 2019-12-29 15:09 | W.DIS.FURT ---
Summary of Discharge Discharge Summary of Date Date of Exam: 12/29/19 Admission Date Date of Admission: 12/21/19 Admission Diagnosis Hospital Course: Ms. Zaragoza is a 89y/o female with a PMH of atrial fibrillation s/p ablation, MV repair with clips, PE presented with a fall. She reports falling on the porch due to tripping over a ball. She denies being dizzy prior to the fall and did not lose consciousness. She was able to crawl back in the house and contact her son. She was told to go for XR by her PCP. Hip XR showed left femoral neck nondisplaced fracture. She was advised to go to the ED for further management. CT hip was done which confirmed the fracture. Dr. Dodd with Ortho was contacted and agreed to operate. Patient had left hip fixation done. Pain was well-controlled. PT was consulted and worked with patient as per ortho recommendations. She was encouraged to eat a high protein-caloric diet due to being malnourished. [place] Operator was consulted and patient's diet was modified. Her labs were monitored for electrolyte imbalance and post-op anemia. She did have elevated LFTs likely due to receiving demerol on admission along with being on norco. She did well with PT. Patient was stable for discharge to a rehab facility. Patient's medications were resumed except metoprolol was held on the last day due to HR being in 40s. Vital Signs: Vital Signs (72 hours) 12/26/19 16:00 12/26/19 20:00 12/26/19 23:45 Temperature 98.0 F 99.1 F 98.8 F Pulse Rate 66 54 L 53 L Respiratory Rate 20 18 18 Blood Pressure 159/75 128/62 157/72 O2 Sat by Pulse Oximetry 100 98 98 12/27/19 04:00 12/27/19 10:00 12/27/19 11:00 Temperature 98.3 F Pulse Rate 62 Respiratory Rate 18 18 18 Blood Pressure 169/79 O2 Sat by Pulse Oximetry 99 12/27/19 12:00 12/27/19 16:00 12/27/19 17:26 Temperature 98.7 F 98.7 F Pulse Rate 59 L 59 L Respiratory Rate 18 18 18 Blood Pressure 165/72 165/72 O2 Sat by Pulse Oximetry 96 96 12/27/19 18:26 12/27/19 20:00 12/27/19 23:30 Temperature 98.8 F Pulse Rate 57 L Respiratory Rate 18 18 18 Blood Pressure 141/68 O2 Sat by Pulse Oximetry 99 12/28/19 00:00 12/28/19 00:30 12/28/19 08:00 Temperature 98.6 F 98.0 F Pulse Rate 45 L 51 L Respiratory Rate 18 18 18 Blood Pressure 146/67 169/76 O2 Sat by Pulse Oximetry 100 100 12/28/19 12:00 12/28/19 15:43 12/28/19 20:00 Temperature 98.0 F 99.1 F 98.5 F Pulse Rate 47 L 52 L 47 L Respiratory Rate 18 16 20 Blood Pressure 135/64 127/62 149/67 O2 Sat by Pulse Oximetry 100 97 100 12/28/19 20:45 12/28/19 21:45 12/29/19 00:00 Temperature 97.9 F Pulse Rate 43 L Respiratory Rate 18 18 18 Blood Pressure 134/65 O2 Sat by Pulse Oximetry 99 12/29/19 04:00 12/29/19 08:00 12/29/19 12:00 Temperature 98.4 F 97.7 F 97.9 F Pulse Rate 43 L 46 L 47 L Respiratory Rate 16 18 18 Blood Pressure 117/54 136/63 123/60 O2 Sat by Pulse Oximetry 99 99 100 Labs: Laboratory Last Values WBC 5.1 X10^3/uL (3.6-10.0) 12/27/19 04:57 RBC 3.43 X10^6/uL (3.5-5.4) L 12/27/19 04:57 Hgb 11.2 g/dL (12.0-16.0) L 12/27/19 04:57 Hct 33.2 % (36.0-47.0) L 12/27/19 04:57 MCV 96.8 fL (80.0-100.0) 12/27/19 04:57 MCH 32.6 pg (27.0-34.0) 12/27/19 04:57 MCHC 33.7 g/dL (33.0-35.0) 12/27/19 04:57 RDW 15.9 % (11.6-16.5) 12/27/19 04:57 Plt Count 144 X10^3/uL (150.0-450.0) L 12/27/19 04:57 MPV 11.2 fL (7.4-11.0) H 12/27/19 04:57 Neut % (Auto) 60.0 % (42.0-75.0) 12/27/19 04:57 Lymph % (Auto) 16.9 % (21.0-51.0) L 12/27/19 04:57 [place] % (Auto) 18.5 % (0.0-13.0) H 12/27/19 04:57 Eos % (Auto) 4.4 % (0.9-2.9) H 12/27/19 04:57 Baso % (Auto) 0.2 % (0.2-1.0) 12/27/19 04:57 Neut # (Auto) 3.0 x10^3/uL (2.2-4.8) 12/27/19 04:57 Lymph # (Auto) 0.9 X10^3/uL (1.3-2.9) L 12/27/19 04:57 [place] # (Auto) 0.9 x10^3/uL (0.3-0.8) H 12/27/19 04:57 Eos # (Auto) 0.2 x10^3/uL (0.0-0.2) 12/27/19 04:57 Baso # (Auto) 0.0 X10^3/uL (0.0-0.1) 12/27/19 04:57 Absolute Nucleated RBC 0.1 /100WBC 12/27/19 04:57 Sodium 135 mmol/L (136-145) L 12/27/19 04:57 Corrected Sodium TNP 12/27/19 04:57 Potassium 3.6 mmol/L (3.5-5.1) 12/27/19 04:57 Chloride 101 mmol/L (98-107) 12/27/19 04:57 Carbon Dioxide 26.7 mmol/L (21-32) 12/27/19 04:57 BUN 15 mg/dL (7-18) 12/27/19 04:57 Creatinine 0.79 mg/dL (0.55-1.02) 12/27/19 04:57 Est GFR (MDRD) Af Amer > 60 (>60) 12/27/19 04:57 Est GFR (MDRD) Non-Af > 60 (>60) 12/27/19 04:57 Glucose 88 mg/dL (65-99) 12/27/19 04:57 POC Glucose (mg/dL) 83 mg/dL (65-99) 12/29/19 12:15 Calcium 8.8 mg/dL (8.5-10.1) 12/27/19 04:57 Corrected Calcium 9.8 mg/dL (8.5-10.1) 12/26/19 04:33 Magnesium 2.2 mg/dL (1.7-2.9) 12/26/19 04:33 Total Bilirubin 1.50 mg/dL (0.2-1.0) H 12/26/19 04:33 AST 448 Units/L (15-37) H 12/26/19 04:33 ALT 372 Units/L (12-78) H 12/26/19 04:33 Alkaline Phosphatase 108 Units/L (46-116) 12/26/19 04:33 Total Protein 6.4 g/dL (6.4-8.2) 12/26/19 04:33 Albumin 2.7 g/dL (3.4-5.0) L 12/26/19 04:33 Globulin 3.7 g/dL (2.5-4.5) 12/26/19 04:33 Albumin/Globulin Ratio 0.7 Ratio (1.1-2.1) L 12/26/19 04:33 Specimen Type Catherized urine 12/29/19 10:32 Urine Color Yellow (YELLOW) 12/29/19 10:32 Urine Appearance Hazy (CLEAR) 12/29/19 10:32 Urine pH 7.0 (5.0 - 8.0) 12/29/19 10:32 Ur Specific [place] 1.005 (1.000-1.030) 12/29/19 10:32 Urine Protein 1+ (NEGATIVE) 12/29/19 10:32 Urine Glucose (UA) Negative (NEGATIVE) 12/29/19 10:32 Urine Ketones Negative (NEGATIVE) 12/29/19 10:32 Urine Occult Blood 2+ (NEGATIVE) 12/29/19 10:32 Urine Nitrite Positive (NEGATIVE) 12/29/19 10:32 Urine Bilirubin Negative (NEGATIVE) 12/29/19 10:32 Urine Urobilinogen 2+ (NORMAL) 12/29/19 10:32 Ur Leukocyte Esterase 1+ (NEGATIVE) 12/29/19 10:32 Urine RBC 0-2 /HPF (0-3) 12/29/19 10:32 Urine WBC 3-5 /HPF (0-5) 12/29/19 10:32 Ur Squamous Epith Cells Negative /HPF (NEGATIVE) 12/29/19 10:32 Amorphous Sediment 2+ /HPF (NEGATIVE) 12/21/19 17:15 Urine Bacteria 4+ /HPF (NEGATIVE) 12/29/19 10:32 Hyaline Casts Rare /LPF (NEGATIVE) 12/21/19 17:15 Urine Mucus Moderate /HPF (NEGATIVE) 12/21/19 17:15 Ur Culture Indicated? No/not indicated 12/29/19 10:32 Reason For Visit: CLOSED LEFT HIP FRACTURE Discharge Date Discharge Date: 12/29/19 Discharge Diagnosis All Active Problems (Updated 12/24/19 @ 08:23 by Kianna Townsend) Protein calorie malnutrition (Acute) Hypokalemia (Acute) Anemia (Acute) Thrombocytopenia (Acute) Transaminitis (Acute) GERD (gastroesophageal reflux disease) (Acute) H/O mitral valve repair (Acute) Atrial fibrillation (Acute) Constipation (Acute) Fecal impaction (Acute) Abdominal pain (Acute) Back pain (Acute) Hip pain, right (Acute) Abdominal pain with vomiting (Acute) No history of deep venous thrombosis or pulmonary embolus (Acute) Mild cardiomegaly (Acute) Dilatation of pulmonic artery (Acute) RLL pneumonia (Acute) HTN (hypertension) (Chronic) CAD (coronary artery disease) (Chronic) SOB (shortness of breath) (Acute) Edema (Acute) Closed left hip fracture (Acute) Plan of Treatment: Continue with present treatment and follow up plan. Pt is to keep follow up appointment as instructed and take medications as ordered. Discharge Medications Discharge Medications: codeine Allergy (Verified 12/21/19 15:06) Penicillins Allergy (Verified 12/21/19 15:06) Sulfa (Sulfonamide Antibiotics) [SULFA] Allergy (Verified 12/21/19 15:06) CONTINUE taking the following medications amiodarone 200 mg PO DAILY 12/21/19 [History] apixaban [Eliquis] 2.5 mg PO BID 12/21/19 [History] brinzolamide [Azopt] 1 drp OPHTHALMIC (EYE) TID 12/21/19 [History] folic acid 1 mg PO DAILY 12/21/19 [History] latanoprost 1 drp OPHTHALMIC (EYE) QHS 12/21/19 [History] metoprolol tartrate 25 mg PO BID 12/21/19 [History] pantoprazole 40 mg PO DAILY 12/21/19 [History] prednisolone acetate 1 drp OPHTHALMIC (EYE) BID 12/21/19 [History] New Prescriptions hydrocodone-acetaminophen 1 tab PO Q6H PRN 14 Days #56 tab MDD 20 mg 12/25/19 [Rx] Follow up and Referral Follow Up: 2 Weeks (Orthopedics ) Discharge Disposition Assessment: Stable no acute distress noted at discharge. Discharge Disposition: Rehab Discharge Condition: Stable
== END 2019-12-29 12:19 | DRG 481 ==
LOC: ER 14:54 → ICU 17:42 → MED/SURG 12-25 16:47
PROVIDERS: ADMIT Family Medicine; ATTEND Internal Medicine
PROC: ORIFHIP (2019-12-22 12:15)
DX: B96.1 Klebsiella pneumoniae [K. pneumoniae] as the cause of diseases classified elsewhere; R94.31 Abnormal electrocardiogram [ECG] [EKG]; D64.89 Other specified anemias; Z91.81 History of falling; K59.09 Other constipation; W01.0XXA Fall on same level from slipping, tripping and stumbling without subsequent striking against object, initial encounter; I10 Essential (primary) hypertension; S72.002A Fracture of unspecified part of neck of left femur, initial encounter for closed fracture; I48.20 Chronic atrial fibrillation, unspecified; I25.10 Atherosclerotic heart disease of native coronary artery without angina pectoris; Y92.009 Unspecified place in unspecified non-institutional (private) residence as the place of occurrence of the external cause; K21.9 Gastro-esophageal reflux disease without esophagitis; N39.0 Urinary tract infection, site not specified; E87.6 Hypokalemia
CPT/HCPCS: 36415; 51702; 71010; 71045; 73501; 73700; 76000; 80048; 80053; 81001; 83735; 85025; 87086; 87088; 87186; 93005; 96365; 96367; 96374; 96375; 97110; 97112; 97163; 97165; 97530; 97535; 99100; 99284; A4216; A4222; J0330; J0690; J1100; J2175; J2270; J2405; J2704; J2710; J3010; J3475; J3480; J3490; J7040; J7120; S0077